=== PATIENT | female | born 1965 | race Caucasian/White ===

== ENCOUNTER → 2020-08-16 13:28 | Outpatient (BNVA) | payer MEDICAID, SELFPAY | PROVIDERS: PCP Nurse Practitioner Family; Visit Provider Nurse Practitioner Family ==

== ENCOUNTER → 2020-12-04 08:43 | Outpatient (BNVA) | payer MEDICAID, SELFPAY | PROVIDERS: PCP Nurse Practitioner Primary Care; Referring Provider Nurse Practitioner Primary Care; Visit Provider Surgery | DX: C44.621 Squamous cell carcinoma of skin of unspecified upper limb, including shoulder (principal) | CPT/HCPCS: 99202 ==

== ENCOUNTER 2023-06-02 22:49 | Inpatient (IN) | payer OTHER, SELFPAY ==
--- NOTE | ~2023-06-02 | XR_ITS ---
EXAMINATION: Left hip and femur x-ray CLINICAL INFORMATION: Pain. Mobility. COMPARISON: None. TECHNIQUE: One view of the pelvis, 2 views of the left hip and 2 views of the left femur FINDINGS: There is mild arthritis at the left hip joint. No fracture or dislocation. Left knee joint is normal. Increased sclerosis of the pubic symphysis. Bones of the pelvis are otherwise normal. Degenerative changes of the lower lumbar spine. XR/XR femur LT 2V IMPRESSION: No fracture or dislocation. Mild left hip arthritis. Degenerative changes of the lumbar spine.
--- NOTE | ~2023-06-02 | XR_ITS ---
EXAMINATION: Left hip and femur x-ray CLINICAL INFORMATION: Pain. Mobility. COMPARISON: None. TECHNIQUE: One view of the pelvis, 2 views of the left hip and 2 views of the left femur FINDINGS: There is mild arthritis at the left hip joint. No fracture or dislocation. Left knee joint is normal. Increased sclerosis of the pubic symphysis. Bones of the pelvis are otherwise normal. Degenerative changes of the lower lumbar spine. XR/XR hip LT w PEL1V IMPRESSION: No fracture or dislocation. Mild left hip arthritis. Degenerative changes of the lumbar spine.
--- NOTE | ~2023-06-02 | XR_ITS ---
EXAMINATION: XR TIBIA AND FIBULA, LEFT CLINICAL INFORMATION: Pain. Impaired mobility COMPARISON: None available. TECHNIQUE: AP and lateral views of the left tibia and fibula were obtained. FINDINGS: The bones and soft tissues are normal. No fracture. No osseous lesions. XR/XR tibia fibula LT 2V IMPRESSION: Normal left tibia and fibula.
--- OUTSIDE RECORDS SUMMARY | 2023-06-03 02:13 | XMS_ITS | Continuity of Care Document ---
Author Name Unknown Organization [facility] Address [address] [place], [place] [address], [address] [place] [address]- Care Team Providers Care Apple Turner Name Role Phone Tristan QUALITY SYSTEM MANAGER, Katya Dee Primary Care Physician Encounter [facility] [place] Date(s): 09/12/19 - 09/22/19 [facility] [address] [place] [address], [address] [place] [address]- [facility] Attending Physician: AdmtrDean Admitting Physician: AdmtrDean Referring Physician: Admtr, Ar8 Allergies, Adverse Reactions, Alerts Substance Reaction Severity Status erythromycin anaphylaxis Anaphylactic reaction Active penicillin Anaphylaxis Anaphylactic reaction Active Tomatoes hives Active Immunizations Given and Recorded Vaccine Date Status Refusal Reason tetanus/diphtheria/pertussis, acel(Tdap) 01/14/17 Given Medications Abilify 5 mg oral tablet 5 mg, 1, tablet, By Mouth, Daily, # 30 tablet, Refills 0, Tot. Refills 0, Maintenance, 07/15/19 10:02:00 EST, Route to Pharmacy Electronically, [facility]/pharmacy #[id number], 165, cm, 07/15/19 9:12:00 EST, Height, 77.2, kg, 07/12/19 14:05:00 EST, Dry Weight Start Date: 07/15/19 Stop Date: 08/14/19 Status: Ordered albuterol 0.083% inhalation solution USE 1 VIAL VIA NEBULIZER 3 TIMES A DAY Start Date: 09/22/19 Status: Ordered Ambien 10 mg oral tablet 1 tablet = 10 mg, By Mouth, Daily at bedtime, PRN for sleep, 0 Refills, Maintenance, 01/14/17 10:59:58, Tablet Start Date: 01/14/17 Status: Ordered Anoro Ellipta 62.5 mcg-25 mcg/inh inhalation powder 1 puffs, Inhalation, Daily, # 1 each, 4 Refills, Maintenance, 09/22/19 10:32:00 EST, [facility]/pharmacy #[id number], Please call if not covered by insurance., 1 puffs Inhalation Daily, 168, cm, 09/22/19 10:09:00EST, Height, 77.9, kg, 09/05/19 9:27:00 EST, Dry We... Start Date: 09/22/19 Status: Ordered Combivent Respimat CFC free 20 mcg-100 mcg/inh inhalation aerosol 1 puffs, Inhalation, 4 times a day, PRN Wheezing/Shortness of Breath, # 1 each, 6 Refills, Maintenance, 04/28/17 17:13:02, Aerosol, 1 puffs Inhalation 4 times a day,PRN:Wheezing/Shortness of Breath Start Date: 04/28/17 Status: Ordered cyclobenzaprine 5 mg oral tablet 1 tablet = 5 mg, By Mouth, 3 times a day, PRN Pain , Moderate, 0 Refills, Maintenance, 07/12/19 14:27:23 EST Start Date: 07/12/19 Status: Ordered diclofenac potassium 50 mg oral tablet TAKE 1 TABLET BY MOUTH 3 TIMES A DAY NEEDED FOR MODERATE PAIN Start Date: 09/22/19 Status: Ordered levothyroxine 0.025 mg oral tablet 1 tablet = 25 mcg, By Mouth, Daily before breakfast, # 30 tablet, 0 Refills, Maintenance, 07/12/19 14:23:13 EST, Tablet Start Date: 07/12/19 Status: Ordered Lidoderm 5% film 1 patch, Topically, Daily, remove patches after 12 hours and leave off for 12 hours before replacing. You may apply 1-2 patches to the area., # 30 patch, 0 Refills, Maintenance, 09/05/19 10:24:00 EST, [facility]/pharmacy #1234, 1 patch Topically Daily,Instr... Start Date: 09/05/19 Status: Ordered SEROquel 50 mg oral tablet 1 tablet = 50 mg, By Mouth, Daily at bedtime, # 30 tablet, 0 Refills, Maintenance, 07/15/19 10:00:00 EST, Tablet, [facility]/pharmacy #1234, 165, cm, 07/15/19 9:12:00 EST, Height, 77.2, kg, 07/12/19 14:05:00 EST, Dry Weight Start Date: 07/15/19 Stop Date: 08/14/19 Status: Ordered Vitamin D3 = 2,000 units, By Mouth, Daily, 0 Refills, Maintenance, 07/12/19 14:24:49 EST Start Date: 07/12/19 Status: Ordered Xanax XR 1 mg oral tablet, extended release 1 tablet = 1 mg, By Mouth, 5 times a day, 0 Refills, Maintenance, 01/14/17 11:01:21 EDT Start Date: 01/14/17 Status: Ordered Problem List Condition Effective Dates Status Health Status Inform ant Back pain(Confirmed) Active Bipolar disorder(Confirmed) Active Alcohol dependence in remission(Confirmed) Active Cocaine abuse(Confirmed) Active History of substance abuse(Confirmed) Active Hypothyroidism(Confirmed) Active Anxiety and depression(Confirmed) Active Multiple sclerosis(Confirmed) Active COPD, severe(Confirmed) Active Current smoker(Confirmed) Active Social History Social History Type Response Smoking Status 5-9 cigarettes (betw een 1/4 to 1/2 pack)/day in last 30 days; Tobacco user in household: No;Never; Type: Cigarettes; Previous treatment: Nicotine replacement; Interested in cessation: Yes; Tobacco use times per day: Up until Fall 2018 was smoking 1.5 ppd for over 30 years; started smoking at age 14; Total pack years: 45; Started at age: 14; entered on: 09/22/19 Sex
--- OUTSIDE RECORDS SUMMARY | 2023-06-03 02:13 | XMS_ITS | Continuity of Care Document ---
Author Name Unknown Organization [facility] heather Address [address] [place] [address] [address] [place] [address]- Care Team Providers Care Trolley Cleaner Name Role Phone Tristan AIRCRAFT RIGGING AND CONTROLS MECHANIC, Katya Dee Primary Care Physician Encounter [facility] [place] Date(s): 02/08/21 - 03/10/21 [facility] [address] [place] [address]- Attending Physician: AdmDean tavera Admitting Physician: Admtr, Ar8 Referring Physician: Admtr, Ar8 Allergies, Adverse Reactions, [...] 07/15/19 10:02:00 EST, Route to Pharmacy Electronically, [facility]/pharmacy #[id number], 165, cm, 07/15/19 9:12:00 EST, Height, 77.2, kg, 07/12/19 14:05:00 EST, Dry Weight Start Date: 07/15/19 Stop Date: 08/14/19 Status: Ordered acetaminophen-oxyCODONE 325 mg-5 mg oral tablet 1, tablet, By Mouth, Every 6 hours, PRN, not to exceed 4000 mg acetaminophen per day, # 7 tablet, Refills 0, Tot. Refills 0, Maintenance, Pain , Severe, 12/23/20 10:20:00 EDT, Route to Pharmacy Electronically, [facility]/pharmacy #1234 Tablet, Partial fill u... Start Date: 12/23/20 Status: Ordered albuterol 0.083% inhalation solution 3 mL = 2.5 mg, Neb, Every 6 hours, PRN as needed for wheezing, # 90 mL, 0 Refills, Maintenance, 11/06/20 9:31:00 EDT, Solution, Partial fill upon patient request if the prescription is for a scheduleII opioid drug. Start Date: 11/06/20 Status: Ordered Ambien 10 mg oral tablet 1 tablet = 10 mg, By Mouth, Daily at bedtime, PRN for sleep, 0 Refills, Maintenance, 01/14/17 10:59:58, Tablet Start Date: 01/14/17 Status: Ordered Anoro Ellipta 62.5 mcg-25 mcg/inh inhalation powder 1 puffs, Inhalation, Daily, # 1 each, 4 Refills, Maintenance, 09/22/19 10:32:00 EST, [facility]/pharmacy #1234, Please call if not covered by [...] 14:27:23 EST Start Date: 07/12/19 Status: Ordered levothyroxine 0.075 mg oral tablet 1 tab, By Mouth, Daily before breakfast, 0 Refills, Maintenance, 05/13/20 11:41:00 EDT Start Date: 05/13/20 Status: Ordered naproxen 500 mg oral tablet 1 tablet = 500 mg, By Mouth, 2 times a day, with food, # 10 tablet, 0 Refills, Maintenance, 12/23/20 10:20:00 EDT, Tablet, [facility]/pharmacy #1234, Partial fill upon patient request if the prescription isfor a schedule II opioid drug., 168, cm, 12/23/20 8... Start Date: 12/23/20 Stop Date: 12/28/20 Status: Ordered pregabalin 200 mg oral capsule 1 capsule = 200 mg, By Mouth, 2 times a day, 0 Refills, Maintenance, 05/13/20 11:42:00 EDT, Capsule Start Date: 05/13/20 Status: Ordered SEROquel 50 mg oral tablet 1 tablet = 50 mg, By Mouth, Daily at bedtime, # 30 tablet, 0 Refills, Maintenance, 07/15/19 10:00:00 EST, Tablet, [facility]/pharmacy #1234, 165, cm, 07/15/19 9:12:00 EST, Height, [...]
--- OUTSIDE RECORDS SUMMARY | 2023-06-03 02:13 | XMS_ITS | Continuity of Care Document ---
Author Name Unknown Organization [facility] Address [address] [place] [address]- Care Team Providers Care Court Officer Name Role Phone Tristan MANAGER DISH, Katya Dee Primary Care Physician En[place] [facility] [place] [place] [id number] Date(s): 02/16/20 - 04/27/20 [facility] [address] [place] [address]- [facility] Attending Physician: Cyndy Shaw MD Admitting Physician: Cyndy Shaw MD Allergies, Adverse Reactions, Alerts Substance Reaction Severity Status erythromycin anaphylaxis Anaphylactic reaction Active penicillin Anaphylaxis Anaphylactic reaction Active Tomatoes hives Active Immunizations Given and Recorded Vaccine Date Status Refusal Reason tetanus/diphtheria/pertussis, acel(Tdap) 01/14/17 Given Medications Abilify 5 mg oral tablet 5 mg, 1, tablet, By Mouth, Daily, # 30 tablet, Refills 0, Tot. Refills 0, Maintenance, 07/15/19 10:02:00 EST, Route to Pharmacy Electronically, [facility]/pharmacy #[id number], 165, cm, 07/15/19 9:12:00 [...] each, 4 Refills, Maintenance, 09/22/19 10:32:00 EST, [facility]/pharmacy #1234, Please call if not [...] EST, Tablet Start Date: 07/12/19 Status: Ordered SEROquel 50 mg oral tablet 1 tablet = 50 mg, By Mouth, Daily at bedtime, # 30 tablet, 0 Refills, Maintenance, 07/15/19 10:00:00 EST, Tablet, [facility]/pharmacy #1234, 165, cm, 07/15/19 9:12:00 [...]
--- OUTSIDE RECORDS SUMMARY | 2023-06-03 02:13 | XMS_ITS | Continuity of Care Document ---
Author Name Unknown Organization [facility] ter Address [address] [place] [address]- Care Team Providers Care Gas Meter Reader Name Role Phone Tristan ACKERMAN, Katya Dee Primary Care Physician Encounter [facility] [place] [facility] R [id number] Date(s): 09/23/19 - 01/19/[address] [address]- [facility] Attending Physician: Kylie Simpson NP Admitting Physician: Kylie Simpson NP Referring Physician: Kylie Simpson NP Allergies, Adverse Reactions, Alerts Substance Reaction Severity Status erythromycin anaphylaxis Anaphylactic reaction Active penicillin Anaphylaxis Anaphylactic reaction Active Tomatoes hives Active Immunizations Given and Recorded Vaccine Date Status Refusal Reason tetanus/diphtheria/pertussis, acel(Tdap) 01/14/17 Given Medications Abilify 5 mg oral tablet 5 mg, 1, tablet, By Mouth, Daily, # 30 tablet, Refills 0, Tot. Refills 0, Maintenance, 07/15/19 10:02:00 EST, Route to Pharmacy Electronically, [facility]/pharmacy #1234, 165, cm, 07/15/19 9:12:00 EST, Height, [...] each, 4 Refills, Maintenance, 09/22/19 10:32:00 EST, [facility]/pharmacy #1234, Please call if not covered by [...] 0 Refills, Maintenance, 07/15/19 10:00:00 EST, Tablet, [facility]/pharmacy #1234, 165, cm, 07/15/19 9:12:00 EST, Height, [...]
--- OUTSIDE RECORDS SUMMARY | 2023-06-03 02:13 | XMS_ITS | Continuity of Care Document ---
Author Name Unknown Organization [facility]ather Address [address] [place] [address] [address] [place] [address]- Care Team Providers Care Assistant Commissioner Name Role Phone Tristan DIESEL TRACTOR OPERATOR, Katya Dee Primary Care Physician En[place] [facility] [place] Date(s): 12/04/20 - 01/31/21 [facility] [address] [place] [address]- Attending Physician: Lm Carlos MD Referring Physician: Vel Sanders MD Allergies, Adverse Reactions, Alerts Substance Reaction [...] 07/15/19 10:02:00 EST, Route to Pharmacy Electronically, [facility]/pharmacy #[id number], 165, cm, 07/15/19 9:12:00 EST, [...] 12/23/20 10:20:00 EDT, Route to Pharmacy Electronically, [facility]/pharmacy #1234 Tablet, Partial fill u... Start [...] each, 4 Refills, Maintenance, 09/22/19 10:32:00 EST, [facility]/pharmacy #1234, Please call if not covered [...] 0 Refills, Maintenance, 07/15/19 10:00:00 EST, Tablet, [facility]/pharmacy #1234, 165, cm, 07/15/19 9:12:00 EST, Height, 77.2, kg, 07/12/19 14:05:00 EST, Dry Weight Start Date: 07/15/19 Stop Date: 08/14/19 Status: Ordered Tylenol 8 Hour 650 mg oral tablet, extended release 2 tablet = 1,300 mg, By Mouth, Every 8 hours, PRN as needed for fever, for 7 days, # 24 tablet, 0 Refills, Acute 02/01/21 9:42:00 EDT, 01/25/21 9:42:00 EDT, ER Tablet, [facility]/pharmacy #1234, Partial fill upon patient request if the prescription is for a... Start Date: 01/25/21 Stop Date: 02/01/21 Status: Ordered Vitamin D3 = 2,000 units, [...] Response Smoking Status 5-9 cigarettes (betw een 07/30 to 1/2 pack)/day in last 30 days; Tobacco user in household: No;Never; Type: Cigarettes; Previous treatment: Nicotine replacement; Interested in cessation: Yes; Tobacco use times per day: Up until Fall 2018 was smoking 1.5 ppd for over 30 years; started smoking at age 14; Total pack years: 45; Started at age: 14; entered on: 09/22/19 Sex
--- OUTSIDE RECORDS SUMMARY | 2023-06-03 02:13 | XMS_ITS | Continuity of Care Document ---
Author Name Unknown Organization [facility] Address [address] [place] [address]- Care Team Providers Care Installer Soft Top Name Role Phone Tristan MIDDLE SCHOOL COACH, Katya Dee Primary Care Physician [phone] Encounter [facility] [place] Date(s): 04/27/20 - 05/27/20 [facility] [address] [place] [address]- [facility] Attending Physician: Dean Darden Admitting Physician: Admtr, Dean Referring Physician: Admtr, Ar8 Allergies, Adverse Reactions, [...] 07/15/19 10:02:00 EST, Route to Pharmacy Electronically, [facility]/pharmacy #1234, 165, cm, 07/15/19 9:12:00 EST, Height, 77.2, kg, 07/12/19 14:05:00 EST, Dry Weight Start Date: 07/15/19 Stop Date: 08/14/19 Status: Ordered Ambien 10 mg oral tablet 1 tablet = 10 mg, By Mouth, Daily at bedtime, PRN for sleep, 0 Refills, Maintenance, 01/14/17 10:59:58, Tablet Start Date: 01/14/17 Status: Ordered Anoro Ellipta 62.5 mcg-25 mcg/inh inhalation powder 1 puffs, Inhalation, Daily, # 1 each, 4 Refills, Maintenance, 09/22/19 10:32:00 EST, [facility]/pharmacy #1234, Please call if not covered [...] 11:41:00 EDT Start Date: 05/13/20 Status: Ordered pregabalin 200 mg oral capsule 1 capsule = 200 mg, By Mouth, 2 times a day, 0 Refills, Maintenance, 05/13/20 11:42:00 EDT, Capsule Start Date: 05/13/20 Status: Ordered SEROquel 50 mg oral tablet 1 tablet = 50 mg, By Mouth, Daily at bedtime, # 30 tablet, 0 Refills, Maintenance, 07/15/19 10:00:00 EST, Tablet, [facility]/pharmacy #1234, 165, cm, 07/15/19 9:12:00 EST, [...]
--- OUTSIDE RECORDS SUMMARY | 2023-06-03 02:13 | XMS_ITS | Continuity of Care Document ---
Author Name Unknown Organization [facility] ter Address [address] [place] [address]- Care Team Providers Care Frame Table Operator Name Role Phone Tristan ACKERAMN, Katya Dee Primary Care Physician [phone] Encounter [facility] [place] Date(s): 01/02/21 - 02/16/[address] [address] Attending Physician: Katya Hudson NP Admitting Physician: Tristan ACKERMAN, Katya Dee Referring Physician: Tristan ACKERMAN, Katya Dee Allergies, Adverse Reactions, Alerts Substance Reaction Severity Status erythromycin anaphylaxis Anaphylactic reaction Active Tomatoes hives Active penicillin Anaphylaxis Anaphylactic reaction Active Immunizations Given and Recorded Vaccine Date Status Refusal Reason tetanus/diphtheria/pertussis, acel(Tdap) 01/14/17 Given Medications Abilify 5 mg oral tablet 5 mg, 1, tablet, By Mouth, Daily, # 30 tablet, Refills 0, Tot. Refills 0, Maintenance, 07/15/19 10:02:00 EST, Route to Pharmacy Electronically, [facility]/pharmacy #1234, 165, cm, 07/15/19 9:12:00 EST, [...] 12/23/20 10:20:00 EDT, Route to Pharmacy Electronically, [facility]/pharmacy #1234 Tablet, Partial fill u... Start Date: [...] each, 4 Refills, Maintenance, 09/22/19 10:32:00 EST, [facility]/pharmacy #1234, Please call if not covered [...] 0 Refills, Maintenance, 07/15/19 10:00:00 EST, Tablet, [facility]/pharmacy #1234, 165, cm, 07/15/19 9:12:00 EST, [...]
--- OUTSIDE RECORDS SUMMARY | 2023-06-03 02:13 | XMS_ITS | Continuity of Care Document ---
Author Name Unknown Organization [facility] Address [address] [place] [address]- Care Team Providers Care Counter Manager Name Role Phone Tristan ACKERMAN, Katya Dee Primary Care Physician [phone] Encounter [facility] [place] Date(s): 06/12/21 - 07/12/[address] [address]- Attending Physician: Dean Darden Admitting Physician: Admtr, Ar8 Referring Physician: Admtr, Ar8 Allergies, Adverse Reactions, Alerts Substance Reaction Severity Status Tomatoes hives Active erythromycin anaphylaxis Anaphylactic reaction Active penicillin Anaphylaxis Anaphylactic reaction Active Immunizations Given and Recorded Vaccine Date Status Refusal Reason tetanus/diphtheria/pertussis, acel(Tdap) 01/14/17 Given Medications Abilify 5 mg oral tablet 5 mg, 1, tablet, By Mouth, Daily, # 30 tablet, Refills 0, Tot. Refills 0, Maintenance, 03/22/21 10:08:00 EDT, Route to Pharmacy Electronically, [facility]/pharmacy #1234, 168, cm, 03/22/21 10:10:00 EDT, Height, 75, kg, 03/18/21 19:04:00 EDT, Dry Weight Start Date: 03/22/21 Stop Date: 04/21/21 Status: Ordered ALPRAZolam 0.5 mg oral tablet 1 mg, 2, tablet, By Mouth, 3 times a day, PRN, Refills 0, Maintenance, Anxiety, 03/22/21 10:11:00 EDT, Partial fill upon patient request if the prescription is for a schedule II opioid drug. Start Date: 03/22/21 Status: Ordered Ambien 5 mg oral tablet 2 tablet = 10 mg, By Mouth, Daily at bedtime, PRN Sleep, 0 Refills, Maintenance, 03/22/21 10:10:00 EDT, Tablet, Partial fill upon patient request if the prescription is for a schedule II opioid drug. Start Date: 03/22/21 Status: Ordered fluticasone-vilanterol 100 mcg-25 mcg/inh inhalation powder 1 puffs, Inhalation, Daily, # 1 each, 0 Refills, Maintenance, 03/22/21 10:09:00 EDT, Inhaler, [facility]/pharmacy #1234, Partial fill upon patient request if the prescription is for a schedule II opioid drug., 1 puffs Inhalation Daily, 168, cm, 03/22/21 10:1... Start Date: 03/22/21 Status: Ordered gabapentin 100 mg oral capsule 100 mg, 1, capsule, By Mouth, 4 times a day, # 120 capsule, Refills 0, Tot. Refills 0, Maintenance,03/22/21 10:09:00 EDT, Route to Pharmacy Electronically, [facility]/pharmacy #1234, Partial fill upon patient request if the prescription is for a schedule II... Start Date: 03/22/21 Status: Ordered levothyroxine 0.1 mg oral tablet 1 tablet = 100 mcg, By Mouth, Daily, # 30 tablet, 0 Refills, Maintenance, 03/22/21 10:09:00 EDT, Tablet, [facility]/pharmacy #1234, Partial fill upon patient request if the prescription is for a schedule IIopioid drug., 168, cm, 03/22/21 10:10:00 EDT, Heigh... Start Date: 03/22/21 Status: Ordered Nicoderm C-Q Clear 21 mg/24 hr transdermal film, extended release See Instructions, one daily, # 21 patch, 0 Refills, Maintenance, 03/22/21 10:10:00 EDT, [facility]/pharmacy #1234, Partial fill upon patient request if the prescription is for a schedule II opioid drug., 168, cm, 03/22/21 10:10:00 EDT, Height, 75, kg, 03/18/... Start Date: 03/22/21 Status: Ordered Protonix 20 mg oral delayed release tablet = 20 mg, By Mouth, 2 times a day, # 60 capsule, 0 Refills, Maintenance, 03/22/21 10:10:00 EDT, EC Tablet, 168, cm, 03/22/21 10:10:00 EDT, Height, 75, kg, 03/18/21 19:04:00 EDT, Dry Weight Start Date: 03/22/21 Status: Ordered SEROquel 100 mg oral tablet 100 mg, 1, tablet, By Mouth, 3 times a day, # 90 tablet, Refills 0, Tot. Refills 0, Maintenance, 03/22/21 10:09:00 EDT, Route to Pharmacy Electronically, [facility]/pharmacy #[id number], Partial fill upon patientrequest if the prescription is for a schedule II op... Start Date: 03/22/21 Status: Ordered Problem List Condition Effective Dates [...]
--- OUTSIDE RECORDS SUMMARY | 2023-06-03 02:13 | XMS_ITS | Continuity of Care Document ---
Author Name Unknown Organization [facility] heather Address [address] [place] [address] [address] [place] [address]- Care Team Providers Care Circus Trainer Name Role Phone Tristan ACKERMAN, Katya Dee Primary Care Physician [phone] [place] [facility] [place] [id number] Date(s): 12/11/20 - 12/18/20 [facility] [address] [place] [address]- Attending Physician: Lm Carlos MD Referring Physician: [...] 07/15/19 10:02:00 EST, Route to Pharmacy Electronically, [facility]/pharmacy #[id number], 165, cm, 07/15/19 9:12:00 EST, Height, 77.2, kg, 07/12/19 14:05:00 EST, Dry Weight Start Date: 07/15/19 Stop Date: 08/14/19 Status: Ordered albuterol 0.083% inhalation solution 3 [...] each, 4 Refills, Maintenance, 09/22/19 10:32:00 EST, [facility]/pharmacy #1234, Please call if [...] 0 Refills, Maintenance, 07/15/19 10:00:00 EST, Tablet, [facility]/pharmacy #1234, 165, cm, 07/15/19 [...] Active COPD, severe(Confirmed) Active Current smoker(Confirmed) Active Vital Signs Most recent to oldest [Reference Range]: 1 Height 168 cm (12/11/20 2:00 PM) Weight 68 kg (12/11/20 2:00 PM) Body Mass Index [18.5-24.99] 24.09 (12/11/20 2:00 PM) Temperature [96.8-100.4 DegF] 98.9 DegF (12/11/20 2:00 PM) Social History Social History Type Response Smoking [...]
--- OUTSIDE RECORDS SUMMARY | 2023-06-03 02:13 | XMS_ITS | Continuity of Care Document ---
Author Name Unknown Organization [facility] Address [address] [place] [address]- Care Team Providers Care Manager Water Wastewater Name Role Phone Tristan ACKERMAN, Katya Dee Primary Care Phys[id number] - 07/24/[address] [address] Attending Physician: Katya Hudson NP Admitting Physician: Tristan ACKERMAN, Katya Dee Referring Physician: Tristan ACKERMAN, Katya Dee Allergies, Adverse Reactions, Alerts Substance Reaction Severity Status erythromycin anaphylaxis Anaphylactic reaction Active penicillin Anaphylaxis Anaphylactic reaction Active Tomatoes hives Active Immunizations Given and Recorded Vaccine Date Status Refusal Reason SARS-CoV-2 mRNA (iyryaeu-xpfv-gcygz) vax 12/14/21 Recorded SARS-CoV-2 (COVID-19) mRNA BNT-162b2 vac 08/04/21 Recorded SARS-CoV-2 (COVID-19) mRNA BNT-162b2 vac 07/14/21 Recorded tetanus/diphtheria/pertussis, acel(Tdap) 01/14/17 Given Not Given Vaccine Date Status Refusal Reason influenza virus vaccine, inactivated 04/20/22 Not Given Parent Or Guardian Refuses Medications Abilify 10 mg oral tablet 10 mg, 1, tablet, By Mouth, Daily, Refills 0, Maintenance, 06/22/22 11:56:00 EST, Partial fill uponpatient request if the prescription is for a schedule II opioid drug. Start Date: 06/22/22 Status: Ordered acetaminophen 325 mg oral tablet 650 mg, By Mouth, Every 4 hours, PRN, Temperature Greater than 100.5, Refills 0, Maintenance, Pain , Mild, 04/21/22 12:37:00 EDT, Partial fill upon patient request if the prescription is for a schedule II opioid drug. Start Date: 04/21/22 Status: Ordered ALPRAZolam 1 mg oral tablet 1 tablet = 1 mg, By Mouth, Every 8 hours, 0 Refills, Maintenance, 06/22/22 11:56:00 EST, Partial fill upon patient request if the prescription is for a schedule II opioid drug. Start Date: 06/22/22 Status: Ordered Ambien 5 mg oral tablet 2 tablet = 10 mg, By Mouth, Daily at bedtime, PRN Sleep, 0 Refills, Maintenance, 03/22/21 10:10:00 EDT, Tablet, Partial fill upon patient request if the prescription is for a schedule II opioid drug. Start Date: 03/22/21 Status: Ordered Anoro Ellipta Inhalation, Daily, 0 Refills, Maintenance, 01/27/22 20:54:00 EDT, Partial fill upon patient requestif the prescription is for a schedule II opioid drug. Start Date: 01/27/22 Status: Ordered CombIVENT Inhaler Refills 0, Maintenance, 06/22/22 11:56:00 EST Start Date: 06/22/22 Status: Ordered cyclobenzaprine 5 mg oral tablet TAKE 1 TABLET BY MOUTH THREE TIMES A DAY Start Date: 04/19/22 Status: Ordered levothyroxine 0.1 mg oral tablet 1 tablet = 100 mcg, By Mouth, Daily, # 30 tablet, 0 Refills, Maintenance, 03/22/21 10:09:00 EDT, Tablet, [facility]/pharmacy #[id number], Partial fill upon patient request if the prescription is for a schedule IIopioid drug., 168, cm, 03/22/21 10:10:00 EDT, [place]. Start Date: 03/22/21 Status: Ordered pregabalin 75 mg oral capsule TAKE 1 CAPSULE BY MOUTH TWICE A DAY Start Date: 04/19/22 Status: Ordered QUEtiapine 100 mg oral tablet TAKE 1 TABLET BY MOUTH THREE TIMES A DAY Start Date: 04/19/22 Status: Ordered rosuvastatin 10 mg oral tablet 1 tablet = 10 mg, By Mouth, Daily, # 30 tablet, 0 Refills, Maintenance, 04/19/22 20:59:00 EDT, Tablet, Partial fill upon patient request if the prescription is for a schedule II opioid drug. Start Date: 04/19/22 Status: Ordered Vitamin D3 2000 intl units oral tablet 1 tablet = 50 mcg, By Mouth, Daily, 0 Refills, Maintenance, 06/22/22 11:57:00 EST, Partial fill upon patient request if the prescription is for a schedule II opioid drug. Start Date: 06/22/22 Status: Ordered Problem List Condition Confirmation Course Effective Dates Status H ealth Status Informant Back pain Confirmed Active Bipolar disorder Confirmed Active Alcohol dependence in remission Confirmed Active Cocaine abuse Confirmed Active History of substance abuse Confirmed Active Hypothyroidism Confirmed Active Hypothyroidism Confirmed Active Anxiety and depression Confirmed Active Multiple sclerosis Confirmed Active Multiple sclerosis Confirmed Active Leg weakness Confirmed Active Obese class I Confirmed Active Falls frequently Confirmed Active COPD, severe Confirmed Active Current smoker Confirmed Active Social History Social History Type Response Smoking Status 5-9 cigarettes (betw een 1/4 to 1/2 pack)/day in last 30 days; Other: 6 cigarettes a day; entered on: 01/28/22 Sex Patient Care team information Care Team Personnel Name: Phil Anglin RN Position: [facility] RN Member Role: Primary Care Nurse Name: Katya Hudson NP Position: [facility] Outreach Member Role: PCP Address: Address: [address] [place] [address]- Care Team Related Persons Name: ALFREDO VILLANUEVA Address: [address] [place] [address] Name: SMOOTH HAJI Name: DENNY HAJI Address: [address] [place] [address]
--- OUTSIDE RECORDS SUMMARY | 2023-06-03 02:13 | XMS_ITS | Continuity of Care Document ---
Author Name Unknown Organization [facility]ather Address [address] [place] [address] [facility] [address] [place] [address]- Care Team Providers Care Weight Loss Physician Name Role Phone Tristan PIVOT END POLISHER, Katya Dee Primary Care Physician [phone] [facility] Date(s): 02/05/21 - 03/07/21 [facility] [address] [place], [place] [address] Allergies, Adverse Reactions, Alerts Substance Reaction Severity Status erythromycin anaphylaxis Anaphylactic reaction Active penicillin Anaphylaxis Anaphylactic reaction Active Tomatoes hives Active Immunizations Given and Recorded Vaccine Date Status Refusal Reason tetanus/diphtheria/pertussis, acel(Tdap) 01/14/17 Given Medications Abilify 5 mg oral tablet 5 mg, 1, tablet, By Mouth, Daily, # 30 tablet, Refills 0, Tot. Refills 0, Maintenance, 07/15/19 10:02:00 EST, Route to Pharmacy Electronically, [facility]/pharmacy #[id number], 165, cm, 07/15/19 9:12:00 [...] 12/23/20 10:20:00 EDT, Route to Pharmacy Electronically, [facility]/pharmacy #[id number] Tablet, Partial fill u... [...] each, 4 Refills, Maintenance, 09/22/19 10:32:00 EST, [facility], Please call if not covered by [...] 0 Refills, Maintenance, 07/15/19 10:00:00 EST, Tablet, [facility], 165, cm, 07/15/19 9:12:00 EST, Height, [...]
--- OUTSIDE RECORDS SUMMARY | 2023-06-03 02:13 | XMS_ITS | Continuity of Care Document ---
Author Name Unknown Organization [facility] Address [address] [place] [address] [address] [place] [address]- Care Team Providers Care Ski Technician Name Role Phone Tristan STARBUCKS CLERK, Katya Dee Primary Care Physician [phone] [place] [facility] [place]s): 01/08/21 - 02/07/21 [facility] [address] [place] [address]- Allergies, Adverse Reactions, Alerts Substance Reaction Severity Status erythromycin anaphylaxis Anaphylactic reaction Active penicillin Anaphylaxis Anaphylactic reaction Active Tomatoes hives Active Immunizations Given and Recorded Vaccine Date Status Refusal Reason tetanus/diphtheria/pertussis, acel(Tdap) 01/14/17 Given Medications Abilify 5 mg oral tablet 5 mg, 1, tablet, By Mouth, Daily, # 30 tablet, Refills 0, Tot. Refills 0, Maintenance, 07/15/19 10:02:00 EST, Route to Pharmacy Electronically, [facility]/pharmacy #[id number], 165, cm, 07/15/19 9:12:00 [...] 12/23/20 10:20:00 EDT, Route to Pharmacy Electronically, [facility]/pharmacy #1234 Tablet, Partial fill u... [...] 0 Refills, Maintenance, 07/15/19 10:00:00 EST, Tablet, [facility]/pharmacy #1234, 165, cm, 07/15/19 9:12:00 [...]
--- OUTSIDE RECORDS SUMMARY | 2023-06-03 02:13 | XMS_ITS | Continuity of Care Document ---
Author Name Unknown Organization [facility]ather Address [address] [place] [address] [address] [place] [address]- Care Team Providers Care Veneer Puller Name Role Phone Tristan CAMPUS SAFETY OFFICER, Katya Dee Primary Care Physician Encounter [facility] Date(s): 05/28/21 - 06/27/21 [facility] [address] [place] [address]- Attending Physician: AdmDean tavera Admitting Physician: Admtr, [...] 03/22/21 10:08:00 EDT, Route to Pharmacy Electronically, [facility]/pharmacy #[id number], 168, cm, 03/22/21 10:10:00 EDT, Height, [...] 0 Refills, Maintenance, 03/22/21 10:09:00 EDT, Inhaler, [facility]/pharmacy #1234, Partial fill upon patient request if the prescription is for a schedule II opioid drug., 1 puffs Inhalation Daily, 168, cm, 03/22/21 10:1... Start Date: 03/22/21 Status: Ordered gabapentin 100 mg oral capsule 100 mg, 1, capsule, By Mouth, 4 times a day, # 120 capsule, Refills 0, Tot. Refills 0, Maintenance,03/22/21 10:09:00 EDT, Route to Pharmacy Electronically, [facility]/pharmacy #1234, Partial fill upon patient request if the prescription is for a schedule II... Start Date: 03/22/21 Status: Ordered levothyroxine 0.1 mg oral tablet 1 tablet = 100 mcg, By Mouth, Daily, # 30 tablet, 0 Refills, Maintenance, 03/22/21 10:09:00 EDT, Tablet, [facility]/pharmacy #1234, Partial fill upon patient request if the prescription is for a schedule IIopioid drug., 168, cm, 03/22/21 10:10:00 EDT, Heigh... Start Date: 03/22/21 Status: Ordered Nicoderm C-Q Clear 21 mg/24 hr transdermal film, extended release See Instructions, one daily, # 21 patch, 0 Refills, Maintenance, 03/22/21 10:10:00 EDT, [facility], Partial fill upon patient request [...] 03/22/21 10:09:00 EDT, Route to Pharmacy Electronically, [facility]/pharmacy #[id number], Partial fill upon patientrequest if the prescription [...]
--- OUTSIDE RECORDS SUMMARY | 2023-06-03 02:13 | XMS_ITS | Continuity of Care Document ---
Author Name Unknown Organization [facility] heather Address [address] [place] [address] [address] [place] [address]- Care Team Providers Care Protohistorian Name Role Phone Tirstan ELECTRIC FRYING PAN REPAIRER, Katya Dee Primary Care Physician [facility] Date(s): 03/21/21 - 04/20/21 [facility] [address] [place], [place] [address] Allergies, Adverse Reactions, Alerts Substance Reaction Severity Status erythromycin anaphylaxis Anaphylactic reaction Active penicillin Anaphylaxis Anaphylactic reaction Active Tomatoes hives Active Immunizations Given and Recorded Vaccine Date Status Refusal Reason tetanus/diphtheria/pertussis, acel(Tdap) 01/14/17 Given Medications Abilify 5 mg oral tablet 5 mg, 1, tablet, By Mouth, Daily, # 30 tablet, Refills 0, Tot. Refills 0, Maintenance, 03/22/21 10:08:00 EDT, Route to Pharmacy Electronically, [facility]/pharmacy #1234, 168, cm, 03/22/21 10:10:00 EDT, Height, [...] 0 Refills, Maintenance, 03/22/21 10:09:00 EDT, Inhaler, [facility]/pharmacy #1234, Partial fill upon patient request if the prescription is for a schedule II opioid drug., 1 puffs Inhalation Daily, 168, cm, 03/22/21 10:1... Start Date: 03/22/21 Status: Ordered gabapentin 100 mg oral capsule 100 mg, 1, capsule, By Mouth, 4 times a day, # 120 capsule, Refills 0, Tot. Refills 0, Maintenance,03/22/21 10:09:00 EDT, Route to Pharmacy Electronically, [facility]/pharmacy #1234, Partial fill upon patient request if the prescription is for a schedule II... Start Date: 03/22/21 Status: Ordered levothyroxine 0.1 mg oral tablet 1 tablet = 100 mcg, By Mouth, Daily, # 30 tablet, 0 Refills, Maintenance, 03/22/21 10:09:00 EDT, Tablet, [facility]/pharmacy #1234, Partial fill upon patient request if the prescription is for a schedule IIopioid drug., 168, cm, 03/22/21 10:10:00 EDT, Gloria... Start Date: 03/22/21 Status: Ordered Nicoderm C-Q Clear 21 mg/24 hr transdermal film, extended release See Instructions, one daily, # 21 patch, 0 Refills, Maintenance, 03/22/21 10:10:00 EDT, [facility]/pharmacy #1234, Partial fill upon patient request if the prescription is for a schedule II opioid drug., 168, cm, 03/22/21 10:10:00 EDT, Height, 75, kg, ... Start Date: 03/22/21 Status: Ordered Protonix 20 [...] 03/22/21 10:09:00 EDT, Route to Pharmacy Electronically, [facility]/pharmacy #[id number], Partial fill upon patientrequest if the prescription [...]
--- OUTSIDE RECORDS SUMMARY | 2023-06-03 02:13 | XMS_ITS | Continuity of Care Document ---
Author Name Unknown Organization [facility] Address [address] [place] [address]- Care Team Providers Care Welcome Center Attendant Name Role Phone Tristan ORGANIZATIONAL RESEARCH CONSULTANT, Katya Dee Primary Care Physician Encounter [facility] Date(s): 03/22/20 - 05/27/20 [facility] [address] [place] [address] [facility] Attending Physician: Cyndy Shaw MD [...] 07/15/19 10:02:00 EST, Route to Pharmacy Electronically, [facility]/pharmacy #1234, 165, cm, 07/15/19 9:12:00 [...] each, 4 Refills, Maintenance, 09/22/19 10:32:00 EST, [facility]/pharmacy #1234, Please call if not [...]
--- OUTSIDE RECORDS SUMMARY | 2023-06-03 02:13 | XMS_ITS | Continuity of Care Document ---
Author Name Unknown Organization [facility] heather Address [address] [place] [address] [address] [place] [address]- Care Team Providers Care Operations Support Specialist Name Role Phone Tristan ACKERMAN, Katya Dee Primary Care Physician [place] [facility] Date(s): 03/25/21 - 06/27/21 [facility] [address] [place] [address]- Attending Physician: Breanna LUI, Lm Referring Physician: Katya Hudson NP Allergies, Adverse Reactions, Alerts Substance Reaction [...] 03/22/21 10:08:00 EDT, Route to Pharmacy Electronically, [facility]/pharmacy #1234, 168, cm, 03/22/21 10:10:00 EDT, [...] 0 Refills, Maintenance, 03/22/21 10:09:00 EDT, Inhaler, [facility]/pharmacy #1234, Partial fill upon patient request if the prescription is for a schedule II opioid drug., 1 puffs Inhalation Daily, 168, cm, 03/22/21 10:1... Start Date: 03/22/21 Status: Ordered gabapentin 100 mg oral capsule 100 mg, 1, capsule, By Mouth, 4 times a day, # 120 capsule, Refills 0, Tot. Refills 0, Maintenance,03/22/21 10:09:00 EDT, Route to Pharmacy Electronically, [facility]/pharmacy #1234, Partial fill upon patient request if the prescription is for a schedule II... Start Date: 03/22/21 Status: Ordered levothyroxine 0.1 mg oral tablet 1 tablet = 100 mcg, By Mouth, Daily, # 30 tablet, 0 Refills, Maintenance, 03/22/21 10:09:00 EDT, Tablet, [facility]/pharmacy #1234, Partial fill upon patient request if the prescription is for a schedule IIopioid drug., 168, cm, 03/22/21 10:10:00 EDT, Heigh... Start Date: 03/22/21 Status: Ordered Nicoderm C-Q Clear 21 mg/24 hr transdermal film, extended release See Instructions, one daily, # 21 patch, 0 Refills, Maintenance, 03/22/21 10:10:00 EDT, [facility]/pharmacy #1234, Partial fill upon patient request [...] 03/22/21 10:09:00 EDT, Route to Pharmacy Electronically, [facility]/pharmacy #[id number], Partial fill upon patientrequest if the prescription [...]
--- OUTSIDE RECORDS SUMMARY | 2023-06-03 02:13 | XMS_ITS | Continuity of Care Document ---
Author Name Unknown Organization [facility] Address [address] [place] [address]- Care Team Providers Care Management Intern Name Role Phone Tristan ACKERMAN, Katya Dee Primary Care Physician [phone] Encounter [facility] Date(s): 10/05/19 - 03/23/20 [facility] [address] [place] [address] [facility] Attending Physician: Cyndy Shaw MD Admitting Physician: Cyndy Shaw MD Referring Physician: Katya Hudson NP Allergies, Adverse [...] 07/15/19 10:02:00 EST, Route to Pharmacy Electronically, [facility]/pharmacy #1234, 165, cm, 07/15/19 9:12:00 EST, [...] each, 4 Refills, Maintenance, 09/22/19 10:32:00 EST, [facility]/pharmacy #1234, Please call if not covered [...] 0 Refills, Maintenance, 07/15/19 10:00:00 EST, Tablet, [facility]/pharmacy #1234, 165, cm, 07/15/19 9:12:00 EST, [...]
--- OUTSIDE RECORDS SUMMARY | 2023-06-03 02:14 | XMS_ITS | Continuity of Care Document ---
Author Name Unknown Organization [facility] Address [address] [place] [address]- Care Team Providers Care Congressional Aide Name Role Phone Tristan ACKERMAN, Katya Dee Primary Care Physician [id number] Date(s): 06/06/21 - 07/12/[address] [address] Attending Physician: Katya Hudson NP Admitting [...] 03/22/21 10:08:00 EDT, Route to Pharmacy Electronically, [facility]/pharmacy #1234, 168, cm, 03/22/21 10:10:00 EDT, Height, [...] 0 Refills, Maintenance, 03/22/21 10:09:00 EDT, Inhaler, [facility]/pharmacy #1234, Partial fill upon patient request if the prescription is for a schedule II opioid drug., 1 puffs Inhalation Daily, 168, cm, 03/22/21 10:1... Start Date: 03/22/21 Status: Ordered gabapentin 100 mg oral capsule 100 mg, 1, capsule, By Mouth, 4 times a day, # 120 capsule, Refills 0, Tot. Refills 0, Maintenance,03/22/21 10:09:00 EDT, Route to Pharmacy Electronically, [facility]/pharmacy #1234, Partial fill upon patient request if the prescription is for a schedule II... Start Date: 03/22/21 Status: Ordered levothyroxine 0.1 mg oral tablet 1 tablet = 100 mcg, By Mouth, Daily, # 30 tablet, 0 Refills, Maintenance, 03/22/21 10:09:00 EDT, Tablet, [facility]/pharmacy #1234, Partial fill upon patient request if the prescription is for a schedule IIopioid drug., 168, cm, 03/22/21 10:10:00 EDT, Heigh... Start Date: 03/22/21 Status: Ordered Nicoderm C-Q Clear 21 mg/24 hr transdermal film, extended release See Instructions, one daily, # 21 patch, 0 Refills, Maintenance, 03/22/21 10:10:00 EDT, [facility]/pharmacy #1234, Partial fill upon patient request if [...] 03/22/21 10:09:00 EDT, Route to Pharmacy Electronically, [facility]/pharmacy #[id number], Partial fill upon patientrequest if the prescription [...]
--- OUTSIDE RECORDS SUMMARY | 2023-06-03 02:14 | XMS_ITS | Continuity of Care Document ---
Author Name Unknown Organization [facility] Address [address] [facility], [address] Floor, [address] [place] [address]- Care Team Providers Care Support Services Coordinator Name Role Phone Tristan HOME ENERGY RATER, Katya Dee Primary Care Physician [phone] Encounter [facility] Date(s): 05/28/22 - 06/27/22 [facility] [address], [address], [address] [place] [address]- Attending Physician: AdmDean tavera Admitting Physician: Admtr, Ar8 Referring Physician: Admtr, Ar8 Allergies, Adverse Reactions, Alerts Substance Reaction Severity Status erythromycin anaphylaxis Anaphylactic reaction Active penicillin Anaphylaxis Anaphylactic reaction Active Tomatoes hives Active Immunizations Given and Recorded Vaccine Date Status Refusal Reason SARS-CoV-2 mRNA (umhbdki-[id number]-poalb) vax 12/14/21 Recorded SARS-CoV-2 (COVID-19) mRNA BNT-162b2 [...] 0 Refills, Maintenance, 03/22/21 10:09:00 EDT, Tablet, [facility]/pharmacy #1234, Partial fill upon patient request if the prescription is for a schedule IIopioid drug., 168, cm, 03/22/21 10:10:00 EDTGloria... Start Date: 03/22/21 Status: Ordered pregabalin 75 [...] sclerosis Confirmed Active Leg weakness Confirmed Active Falls frequently Confirmed Active COPD, severe Confirmed Active Current smoker Confirmed Active Social History Social History Type Response Smoking Status 5-9 cigarettes (betw een 1/4 to 1/2 pack)/day in last 30 days; Other: 6 cigarettes a day; entered on: 01/28/22 Sex Admission evaluation note * Danae Brown: PERFORM, SIGN, VERIFY Event Display: Admit Notes Authored Date: [id number] Patient: ELISA VARELA Age: 50 years Sex: Female : 1965 Associated Diagnoses: None Author: Danae Brown Dear Elisa, We have tried to get in contact with you a few times and the numbers that we have on file are no longer is service. Please contact the office to book an appointment so we are able to fill your prescription. Thank you [facility]. Patient Care team information Care Team Personnel Name: Phil Anglin RN Position: S RN Member Role: Primary Care Nurse Name: Katya Hudson NP Position: [facility] Outreach Member Role: PCP Address: Address: [address] [place] [address]- Care Team Related Persons Name: ALFREDO VILLANUEVA Address: [address] [place] [address] Name: SMOOTH HAJI Name: DENNY AHJI Address: [address] [place] [address]
--- OUTSIDE RECORDS SUMMARY | 2023-06-03 02:14 | XMS_ITS | Continuity of Care Document ---
Author Name Unknown Organization [facility] Address [address] [place] [address]- Care Team Providers Care Elastic Attacher Overlock Name Role Phone Tristan ACKERMAN, Katya Dee Primary Care Physician [phone] [id number] Date(s): 08/03/22 - 09/11/[address] [address] Attending Physician: Katya Hudson NP Admitting Physician: Tristan ACKERMAN, Katya Dee Allergies, Adverse Reactions, Alerts Substance Reaction Severity Status erythromycin anaphylaxis Anaphylactic reaction Active penicillin Anaphylaxis Anaphylactic reaction Active Tomatoes hives Active Immunizations Given and Recorded Vaccine Date Status Refusal Reason SARS-CoV-2 mRNA (bygqfsc-evus-xrhyc) vax 12/14/21 Recorded SARS-CoV-2 (COVID-19) mRNA BNT-162b2 [...] 0 Refills, Maintenance, 03/22/21 10:09:00 EDT, Tablet, [facility]/pharmacy #1234, Partial fill upon patient request if the prescription is for a schedule IIopioid drug., 168, cm, 03/22/21 10:10:00 EDT, [place] Start Date: 03/22/21 Status: Ordered pregabalin 75 [...] Team Personnel Name: Phil Anglin RN Position: [facility] RN Member Role: Primary Care Nurse Name: Katya Hudson NP Position: [facility] Outreach Member Role: PCP Address: Address: [address] [place] [address]- Care Team Related Persons Name: ALFREDO VILLANUEVA Address: [address] [place] [address] Name: SMOOTH HAJI Name: DENNY HAJI Address: [address] [place] [address]
--- OUTSIDE RECORDS SUMMARY | 2023-06-03 02:14 | XMS_ITS | Continuity of Care Document ---
Author Name Unknown Organization [facility] Address [address] [place] [address]- Care Team Providers Care Epic Prelude Analyst Name Role Phone Tristan WOUND/OSTOMY CLINICAL NURSE SPECIALIST, Katya Dee Primary Care Physician Encounter [facility] [place] Date(s): 12/14/19 - 01/13/20 [facility] [address] [place] [address]- [facility] Attending Physician: Dean Darden Admitting Physician: AdmtrDean Referring Physician: Admtr ArKaci Allergies, Adverse Reactions, Alerts Substance Reaction Severity Status penicillin Anaphylaxis Anaphylactic reaction Active Tomatoes hives Active erythromycin anaphylaxis Anaphylactic reaction Active Immunizations Given and Recorded Vaccine Date Status Refusal Reason tetanus/diphtheria/pertussis, acel(Tdap) 01/14/17 Given Medications Abilify 5 mg oral tablet 5 mg, 1, tablet, By Mouth, Daily, # 30 tablet, Refills 0, Tot. Refills 0, Maintenance, 07/15/19 10:02:00 EST, Route to Pharmacy Electronically, [facility]/pharmacy #[id number], 165, cm, 07/15/19 9:12:00 EST, Height, [...] each, 4 Refills, Maintenance, 09/22/19 10:32:00 EST, [facility]/pharmacy #[id number], Please call if not covered by [...] 0 Refills, Maintenance, 07/15/19 10:00:00 EST, Tablet, [facility]/pharmacy #1234, 165, cm, 07/15/19 9:12:00 EST, Height, [...]
--- OUTSIDE RECORDS SUMMARY | 2023-06-03 02:14 | XMS_ITS | Continuity of Care Document ---
Author Name Unknown Organization [facility] heather Address [address] [place] [address] [address] [place] [address]- Care Team Providers Care Administrative Technician Name Role Phone Tristan TRANSMISSION SPECIALIST, Katya Dee Primary Care Physician [phone] Encounter [facility] [place] [id number] Date(s): 02/08/21 - 02/15/21 [facility] [address] [place], [place] [address] Attending Physician: Breanna LUI, Lm Allergies, Adverse Reactions, Alerts Substance Reaction Severity [...] 12/23/20 10:20:00 EDT, Route to Pharmacy Electronically, [facility]/pharmacy #1234 Tablet, Partial fill u... Start [...]
--- OUTSIDE RECORDS SUMMARY | 2023-06-03 02:14 | XMS_ITS | Continuity of Care Document ---
Author Name Unknown Organization [facility] heather Address [address] [place] [address] [address] [place] [address]- Care Team Providers Care Senior Controls Technician Name Role Phone Tristan ACKERMAN, Katya Dee Primary Care Physician Encounter [facility] [place] Date(s): 01/02/21 - 03/07/21 [facility] [address] [place] [address]- Attending Physician: Breanna LUI, Lm Referring Physician: [...] 07/15/19 10:02:00 EST, Route to Pharmacy Electronically, [facility]/pharmacy #[id number], 165, cm, 07/15/19 9:12:00 EST, [...] 12/23/20 10:20:00 EDT, Route to Pharmacy Electronically, [facility]/pharmacy #1234 Tablet, Partial fill u... Start [...] each, 4 Refills, Maintenance, 09/22/19 10:32:00 EST, [facility]/pharmacy #[id number], Please call if not covered [...] 0 Refills, Maintenance, 07/15/19 10:00:00 EST, Tablet, [facility]/pharmacy #[id number], 165, cm, 07/15/19 9:12:00 EST, [...]
--- OUTSIDE RECORDS SUMMARY | 2023-06-03 02:14 | XMS_ITS | Continuity of Care Document ---
Author Name Unknown Organization [facility] Address [address] [facility], 3r d Floor, [address] [place] [address]- Care Team Providers Care Bulk Tank Driver Name Role Phone Not on Staff, PCP Primary Care Physician Unavail able Encounter [facility] [place] Date(s): 08/09/19 - 08/19/19 [facility] [address] [place], 3rd Floor, [address] [place] [address] [facility] Attending Physician: Dean Darden Admitting Physician: Dean Darden Referring Physician: Dean Darden Referring Physician: Tristan ACKERMAN, Katya Allergies, Adverse Reactions, Alerts Substance Reaction Severity [...] 10:02:00 EST, Route to Pharmacy Electronically, [facility]/pharmacy #[id number], 165, cm, 07/15/19 9:12:00 EST, Height, 77.2, kg, 07/12/19 14:05:00 EST, Dry Weight Start Date: 07/15/19 Stop Date: 08/14/19 Status: Ordered Ambien 10 mg oral tablet 1 tablet = 10 mg, By Mouth, Daily at bedtime, PRN for sleep, 0 Refills, Maintenance, 01/14/17 10:59:58, Tablet Start Date: 01/14/17 Status: Ordered Combivent Respimat CFC free 20 mcg-100 mcg/inh inhalation aerosol 1 puffs, Inhalation, 4 times a day, PRN Wheezing/Shortness of Breath, # 1 each, 6 Refills, Maintenance, 10/03/17 17:13:02, Aerosol, 1 puffs Inhalation 4 times a day,PRN:Wheezing/Shortness of Breath Start Date: 04/28/17 Status: Ordered cyclobenzaprine 5 mg oral tablet 1 tablet = 5 mg, By Mouth, 3 times a day, PRN Pain , Moderate, 0 Refills, Maintenance, 07/12/19 14:27:23 EST Start Date: 07/12/19 Status: Ordered levothyroxine 0.025 mg oral tablet [...] Anxiety and depression(Confirmed) Active Multiple sclerosis(Confirmed) Active Current smoker(Confirmed) Active Social History Social History Type Response Smoking Status 5-9 cigarettes (betw een 1/4 to 1/2 pack)/day in last 30 days entered on: 07/11/19 Sex
--- OUTSIDE RECORDS SUMMARY | 2023-06-03 02:14 | XMS_ITS | Continuity of Care Document ---
Author Name Unknown Organization [facility] Address [address] [place] [address]- Care Team Providers Care Ham Stripper Name Role Phone Tristan ACKERMAN, Katya Dee Primary Care Physician Encounter [facility] [place] Date(s): 07/04/22 - 08/09/[address] [address] Attending Physician: Katya Hudson NP Admitting Physician: Tristan ACKERMAN, Katya Dee Allergies, Adverse Reactions, Alerts Substance Reaction Severity Status Tomatoes hives Active erythromycin anaphylaxis Anaphylactic reaction Active penicillin Anaphylaxis Anaphylactic reaction Active Immunizations Given and Recorded Vaccine Date Status Refusal Reason SARS-CoV-2 mRNA ([id number]) vax 12/14/21 Recorded SARS-CoV-2 (COVID-19) mRNA BNT-162b2 [...] 0 Refills, Maintenance, 03/22/21 10:09:00 EDT, Tablet, [facility]/pharmacy #1234, Partial fill upon patient [...] Team Personnel Name: Phil Anglin RN Position: [facility] RN Member Role: Primary Care Nurse Name: Katya Hudson NP Position: [facility] Outreach Member Role: PCP Address: Address: [address] [place] [address]- Care Team Related Persons Name: ALFREDO VILLANUEVA Address: [address] [place] [address] Name: SMOOTH HAJI Name: DENNY HAJI Address: [address] [place] [address]
--- OUTSIDE RECORDS SUMMARY | 2023-06-03 02:14 | XMS_ITS | Continuity of Care Document ---
Author Name Unknown Organization [facility] Address [address] [facility], 3r d Floor, [address] [place] [address]- Care Team Providers Care Nutrition Aides Teacher Name Role Phone Not on Staff, PCP Primary Care Physician Unavail able Encounter [facility] [place] Date(s): 07/14/19 - 09/08/19 [facility] [address] [place], 3rd Floor, [address] [place] [address] [facility] Attending Physician: Vel lÁvarez Admitting Physician: Vel Álvarez Allergies, Adverse Reactions, Alerts Substance Reaction Severity [...] Ordered diclofenac potassium 50 mg oral tablet 1 tablet = 50 mg, By Mouth, 3 times a day, PRN Pain , Moderate, for 5 days, # 15 tablet, 0 Refills,Acute 09/10/19 10:24:00 EST, 09/05/19 10:24:00 EST, Tablet, [facility]/pharmacy #1234, 168, cm, 09/05/19 9:27:00 EST, Height, 77.9, kg, 09/05/19 9:27:00 EST,... Start Date: 09/05/19 Stop Date: 09/10/19 Status: Ordered levothyroxine 0.025 mg oral tablet [...] patch, 0 Refills, Maintenance, 09/05/19 10:24:00 EST, [facility]/pharmacy #1234, 1 patch Topically Daily,Instr... Start Date: [...]
--- OUTSIDE RECORDS SUMMARY | 2023-06-03 02:14 | XMS_ITS | Continuity of Care Document ---
Author Name Unknown Organization [facility] ter Address [address] [place] [address]- Care Team Providers Care Well Drill Operator Rotary Drill Name Role Phone Tristan GRAIN MERCHANDISER, Katya Dee Primary Care Physician [phone] Encounter [facility] Date(s): 12/21/20 - 12/21/[address] [address] Disposition: A-D/C Home Attending Physician: Lm Carlos MD Admitting Physician: Lm Carlos MD Referring Physician: Lm Carlos MD Allergies, Adverse Reactions, Alerts Substance Reaction Severity Status Tomatoes hives Active penicillin Anaphylaxis Anaphylactic reaction Active erythromycin anaphylaxis Anaphylactic reaction Active Immunizations Given and Recorded Vaccine Date Status Refusal Reason tetanus/diphtheria/pertussis, acel(Tdap) 01/14/17 Given Medications Abilify 5 mg oral tablet 5 mg, 1, tablet, By Mouth, Daily, # 30 tablet, Refills 0, Tot. Refills 0, Maintenance, 07/15/19 10:02:00 EST, Route to Pharmacy Electronically, [facility]/pharmacy #[id number], 165, cm, 07/15/19 9:12:00 EST, [...] each, 4 Refills, Maintenance, 09/22/19 10:32:00 EST, [facility]/pharmacy #1234, Please call if not covered by insurance., 1 puffs Inhalation Daily, 168, cm, 09/22/19 10:09:00EST, Height, 77.9, kg, 09/05/19 9:27:00 EST, Dry We... Start Date: 09/22/19 Status: Ordered Bactrim 400 mg-80 mg oral tablet 1 tablet, By Mouth, 2 times a day, # 10 tablet, 0 Refills, Acute 12/26/20 9:42:00 EDT, 12/21/20 9:41:00 EDT, Tablet, [facility]/pharmacy #1234, Partial fill upon patient request if the prescription is for aschedule II opioid drug., 1 tablet By Mouth 2 times... Start Date: 12/21/20 Stop Date: 12/26/20 Status: Ordered Combivent Respimat CFC free 20 [...] 11:41:00 EDT Start Date: 05/13/20 Status: Ordered oxyCODONE 5 mg oral tablet 5 mg, 1, tablet, By Mouth, Every 6 hours, PRN, # 5 tablet, Refills 0, Tot. Refills 0, Acute 12/24/20 9:41:00 EDT, as needed for pain, 12/21/20 9:41:00 EDT, Route to Pharmacy Electronically, [facility]/pharmacy #1234, Partial fill upon patient request if the... Start Date: 12/21/20 Stop Date: 12/24/20 Status: Ordered OxyCODONE IR Tablet 10 mg, Tablet, By Mouth, Every 4 hours, in PACU ONLY, if patient can tolerate PO, PRN for Pain , Moderate, Routine, 12/21/20 8:00:00 EDT Start Date: 12/21/20 Stop Date: 12/21/20 Status: Discontinued pregabalin 200 mg oral capsule 1 capsule = 200 mg, By Mouth, 2 times a day, 0 Refills, Maintenance, 05/13/20 11:42:00 EDT, Capsule Start Date: 05/13/20 Status: Ordered SEROquel 50 mg oral tablet 1 tablet = 50 mg, By Mouth, Daily at bedtime, # 30 tablet, 0 Refills, Maintenance, 07/15/19 10:00:00 EST, Tablet, [facility]/pharmacy #1234, 165, cm, 07/15/19 9:12:00 EST, [...] Active COPD, severe(Confirmed) Active Current smoker(Confirmed) Active Results Orders for Microbiology Reports Name Date Anaerobic Culture (Culture Anaerobic) Fungal Culture, Nonrespiratory (FUNGAL C ULT,NON-RESPIRATORY) 12/21/20 Tissue Culture w/ Gram Smear (TISSUE/BIO PSY CULT.) 12/21/20 Microbiology Reports TEST:Anaerobic Culture STATUS:Unauthenticated BODY SITE: SOURCE:TISSUE1 COLLECTED DATE/TIME:12/21/20 9:15 AM Anaerobic Culture SPECIMEN DESCRIPTION : TISSUE RIGHT DORSAL FOREARM SPECIAL REQUESTS : NONE REPORT STATUS : PRELIMINARY REPORT TEST:Tissue/Biopsy Culture STATUS:Unauthenticated BODY SITE: SOURCE:TISSUE1 COLLECTED DATE/TIME:12/21/20 9:15 AM Tissue/Biopsy Culture SPECIMEN DESCRIPTION : TISSUE RIGHT DORSAL FOREARM SPECIAL REQUESTS : NONE GRAM STAIN : 1+ SQ.EPITHELIAL CELLS NO ORGANISMS SEEN REPORT STATUS : PRELIMINARY REPORT TEST:Fungal Culture, Non-Respiratory STATUS:Unauthenticated BODY SITE: SOURCE:TISSUE1 COLLECTED DATE/TIME:12/21/20 9:15 AM Fungal Culture, Non-Respiratory SPECIMEN DESCRIPTION : TISSUE RIGHT DORSAL FOREARM SPECIAL REQUESTS : NONE REPORT STATUS : PRELIMINARY REPORT Vital Signs Most recent to oldest [Reference Range]: 1 2 3 Weight 80.1 kg (12/21/20 6:35 AM) Oxygen Saturation [94-100 %] 96 % (12/21/20 10:30 AM) 95 % (12/21/20 10:15 AM) 96 % (12/21/20 10:15 AM) Pulse Rate [55-90 bpm] 98 bpm *H* (12/21/20 6:35 AM) Blood Pressure [90-138/55-84 mm Hg] 151/97mm Hg *H* (12/21/20 10:30 AM) 133/93mm Hg (12/21/20 10:15 AM) 133/93mm Hg (12/21/20 10:15 AM) Respiratory Rate [16-30 br/min] 13 br/min *L* (12/21/20 10:30 AM) 18 br/min (12/21/20 10:18 AM) 16 br/min (12/21/20 10:00 AM) Temperature [96.8-100.4 DegF] 96.5 DegF *L* (12/21/20 9:45 AM) 97.6 DegF (12/21/20 6:35 AM) Liters per Minute 4 L/min (12/21/20 9:45 AM) Mode of Delivery (Oxygen) Room air (12/21/20 10:30 AM) Room air (12/21/20 10:15 AM) Room air (12/21/20 10:15 AM) Blood pressure sites Arm, left (12/21/20 6:35 AM) Temperature Route Temporal (12/21/20 9:45 AM) Temporal (12/21/20 6:35 AM) Social History Social History Type Response Smoking [...]
--- OUTSIDE RECORDS SUMMARY | 2023-06-03 02:14 | XMS_ITS | Continuity of Care Document ---
Author Name Unknown Organization [facility] Address [address] [facility], 3r d Floor, [address] [place] [address]- Care Team Providers Care Batch Unloader Name Role Phone Not on Staff, PCP Primary Care Physician Unavail able [place] [facility] Date(s): 06/10/19 - 08/28/19 [facility] [address] [place], 3rd Floor, [address] [place] [address] [facility] Attending Physician: Vel Álvarez Admitting Physician: Vel Álvarez Referring Physician: Zach ACKERMAN, Brenda Skinner Allergies, Adverse Reactions, Alerts Substance Reaction Severity Status erythromycin anaphylaxis Anaphylactic reaction Active penicillin Anaphylaxis Anaphylactic reaction Active Tomatoes hives Active Immunizations Given and Recorded Vaccine Date Status Refusal Reason tetanus/diphtheria/pertussis, acel(Tdap) 01/14/17 Given Medications Abilify 5 mg oral tablet 5 mg, 1, tablet, By Mouth, Daily, # 30 tablet, Refills 0, Tot. Refills 0, Maintenance, 07/15/19 10:02:00 EST, Route to Pharmacy Electronically, [facility]/pharmacy #[id number], 165, cm, 07/15/19 9:12:00 EST, [...]
--- OUTSIDE RECORDS SUMMARY | 2023-06-03 02:14 | XMS_ITS | Continuity of Care Document ---
Author Name Unknown Organization [facility] heather Address [address] [place] [address] [address] [place] [address]- Care Team Providers Care De Icer Element Winder Name Role Phone Tristan CRAB CATCHER, Katya Dee Primary Care Physician Encounter [facility] [place] Date(s): 01/18/21 - 02/17/21 [facility] [address] [place] [address]- Allergies, Adverse Reactions, Alerts Substance Reaction Severity Status erythromycin anaphylaxis Anaphylactic reaction Active penicillin Anaphylaxis Anaphylactic reaction Active Tomatoes hives Active Immunizations Given and Recorded Vaccine Date Status Refusal Reason tetanus/diphtheria/pertussis, acel(Tdap) 01/14/17 Given Medications Abilify 5 mg oral tablet 5 mg, 1, tablet, By Mouth, Daily, # 30 tablet, Refills 0, Tot. Refills 0, Maintenance, 07/15/19 10:02:00 EST, Route to Pharmacy Electronically, [facility]/pharmacy #1234, 165, cm, 07/15/19 9:12:00 EST, [...] 12/23/20 10:20:00 EDT, Route to Pharmacy Electronically, [facility]/pharmacy #1234 Tablet, Partial fill u... Start [...] 0 Refills, Maintenance, 07/15/19 10:00:00 EST, Tablet, [facility]/pharmacy #1234, 165, cm, 07/15/19 9:12:00 EST, [...]
--- OUTSIDE RECORDS SUMMARY | 2023-06-03 02:14 | XMS_ITS | Continuity of Care Document ---
Author Name Unknown Organization [facility] heather Address [address] [place] [address] [address] [place] [address]- Care Team Providers Care Internal Medicine Nurse Name Role Phone Tristan ACKERMAN, Katya Dee Primary Care Physician [place] [facility] [place] Date(s): 02/05/21 - 04/04/21 [facility] [address] [place], [place] [address] Attending Physician: Lm Carlos MD Referring Physician: Tristan ACKERMAN, Katya Dee Allergies, [...] 03/22/21 10:08:00 EDT, Route to Pharmacy Electronically, [facility]/pharmacy #1234, 168, cm, 03/22/21 10:10:00 EDT, Height, [...] 0 Refills, Maintenance, 03/22/21 10:09:00 EDT, Inhaler, [facility]/pharmacy #1234, Partial fill upon patient request if the prescription is for a schedule II opioid drug., 1 puffs Inhalation Daily, 168, cm, 03/22/21 10:1... Start Date: 03/22/21 Status: Ordered gabapentin 100 mg oral capsule 100 mg, 1, capsule, By Mouth, 4 times a day, # 120 capsule, Refills 0, Tot. Refills 0, Maintenance,03/22/21 10:09:00 EDT, Route to Pharmacy Electronically, [facility]/pharmacy #1234, Partial fill upon patient request if the prescription is for a schedule II... Start Date: 03/22/21 Status: Ordered levothyroxine 0.1 mg oral tablet 1 tablet = 100 mcg, By Mouth, Daily, # 30 tablet, 0 Refills, Maintenance, 03/22/21 10:09:00 EDT, Tablet, [facility]/pharmacy #1234, Partial fill upon patient request if the prescription is for a schedule IIopioid drug., 168, cm, 03/22/21 10:10:00 EDT, Heigh... Start Date: 03/22/21 Status: Ordered Nicoderm C-Q Clear 21 mg/24 hr transdermal film, extended release See Instructions, one daily, # 21 patch, 0 Refills, Maintenance, 03/22/21 10:10:00 EDT, [facility]/pharmacy #1234, Partial fill upon patient request if [...] 03/22/21 10:09:00 EDT, Route to Pharmacy Electronically, [facility]/pharmacy #1234, Partial fill upon patientrequest if the prescription [...]
--- OUTSIDE RECORDS SUMMARY | 2023-06-03 02:14 | XMS_ITS | Continuity of Care Document ---
Author Name Unknown Organization [facility] ter Address [address] [place] [address]- Care Team Providers Care Curtain Worker Name Role Phone Tristan BLOOD OR BLOOD BANK TECHNICIAN, Katya Dee Primary Care Physician Encounter [facility] Date(s): 01/25/21 - 01/25/[address] [address]- Discharge Disposition: A-D/C Home Attending Physician: Lm [...] 07/15/19 10:02:00 EST, Route to Pharmacy Electronically, [facility]/pharmacy #1234, 165, cm, 07/15/19 9:12:00 [...] 12/23/20 10:20:00 EDT, Route to Pharmacy Electronically, [facility]/pharmacy #1234 Tablet, Partial fill u... [...] each, 4 Refills, Maintenance, 09/22/19 10:32:00 EST, [facility]/pharmacy #1234, Please call if not [...] Date: 12/23/20 Stop Date: 12/28/20 Status: Ordered oxyCODONE 5 mg oral tablet 5 mg, 1, tablet, By Mouth, Every 4 hours, PRN, for 3 days, # 7 tablet, Refills 0, Tot. Refills 0, Acute 01/28/21 9:42:00 EDT, Pain , Mild, 01/25/21 9:42:00 EDT, Route to Pharmacy Electronically, [facility]/pharmacy #1234, Partial fill upon patient request if... Start Date: 01/25/21 Stop Date: 01/28/21 Status: Ordered OxyCODONE IR Tablet 5 mg, Tablet, By Mouth, Every 4 hours, in PACU ONLY, if patient can tolerate PO, PRN for Pain , Mild, Routine, 01/25/21 8:20:00 EDT Start Date: 01/25/21 Stop Date: 01/25/21 Status: Discontinued pregabalin 200 mg oral capsule 1 capsule = 200 mg, By Mouth, 2 times a day, 0 Refills, Maintenance, 05/13/20 11:42:00 EDT, Capsule Start Date: 05/13/20 Status: Ordered SEROquel 50 mg oral tablet 1 tablet = 50 mg, By Mouth, Daily at bedtime, # 30 tablet, 0 Refills, Maintenance, 07/15/19 10:00:00 EST, Tablet, [facility]/pharmacy #1234, 165, cm, 07/15/19 9:12:00 [...] 9:42:00 EDT, 01/25/21 9:42:00 EDT, ER Tablet, [facility]/pharmacy #1234, Partial fill upon patient [...] oldest [Reference Range]: 1 2 3 Weight 80 kg (01/25/21 6:28 AM) Oxygen Saturation [94-100 %] 92 % *L* (01/25/21 10:30 AM) 92 % *L* (01/25/21 10:15 AM) 95 % (01/25/21 10:00 AM) Pulse Rate [55-90 bpm] 80 bpm (01/25/21 6:28 AM) Blood Pressure [90-138/55-84 mm Hg] 100/69mm Hg (01/25/21 10:30 AM) 104/69mm Hg (01/25/21 10:15 AM) 97/56mm Hg (01/25/21 10:00 AM) Respiratory Rate [16-30 br/min] 12 br/min *L* (01/25/21 10:30 AM) 12 br/min *L* (01/25/21 10:15 AM) 16 br/min (01/25/21 10:07 AM) Temperature [96.8-100.4 DegF] 97 DegF (01/25/21 10:00 AM) 97 DegF (01/25/21 9:00 AM) 97.1 DegF (01/25/21 6:28 AM) Mode of Delivery (Oxygen) Room air (01/25/21 10:30 AM) Room air (01/25/21 10:15 AM) Room air (01/25/21 10:00 AM) Temperature Route Temporal (01/25/21 10:00 AM) Temporal (01/25/21 9:00 AM) Temporal (01/25/21 6:28 AM) Social History Social History Type Response [...]
--- OUTSIDE RECORDS SUMMARY | 2023-06-03 02:14 | XMS_ITS | Continuity of Care Document ---
Author Name Unknown Organization [facility] heather Address [address] [place] [address] [address] [place] [address]- Care Team Providers Care Configuration Analyst Name Role Phone Tristan ACTUARIAL MATHEMATICIAN, Katya Dee Primary Care Physician Encounter [facility] [place] ACCT R [id number] Date(s): 01/01/21 - 01/08/21 [facility] [address] [place], [place] [address] Attending Physician: Breanna LUI, Lm Allergies, [...] 07/15/19 10:02:00 EST, Route to Pharmacy Electronically, [facility]/pharmacy #1234, 165, cm, 07/15/19 [...] 12/23/20 10:20:00 EDT, Route to Pharmacy Electronically, [facility]/pharmacy #1234 Tablet, Partial fill [...] each, 4 Refills, Maintenance, 09/22/19 10:32:00 EST, [facility]/pharmacy #1234, Please call if [...] 0 Refills, Maintenance, 07/15/19 10:00:00 EST, Tablet, [facility]/pharmacy #1234, 165, cm, 07/15/19 [...] oldest [Reference Range]: 1 Height 168 cm (01/01/21 3:32 PM) Weight 77 kg (01/01/21 3:32 PM) Body Mass Index [18.5-24.99] 27.28 *H* (01/01/21 3:32 PM) Temperature [96.8-100.4 DegF] 98.6 DegF (01/01/21 3:32 PM) Social History Social History Type Response [...]
--- OUTSIDE RECORDS SUMMARY | 2023-06-03 02:15 | XMS_ITS | Continuity of Care Document ---
Author Name Unknown Organization [facility] Address [address] [place] [id number]- Care Team Providers Care Fisheries Director Name Role Phone Tristan ACKERMAN, Katya Dee Primary Care Physician [phone] Encounter [facility] Date(s): 08/12/22 - 09/11/[address] [address] Attending Physician: Admtr, Ar8 Admitting Physician: Admtr, Ar8 Referring Physician: Admtr, Ar8 Allergies, Adverse Reactions, Alerts Substance Reaction Severity Status Tomatoes hives Active erythromycin anaphylaxis Anaphylactic reaction Active penicillin Anaphylaxis Anaphylactic reaction Active Immunizations Given and Recorded Vaccine Date Status Refusal Reason SARS-CoV-2 mRNA ([id number]) vax 12/14/21 Recorded SARS-CoV-2 (COVID-19) mRNA BNT-162b2 [...] 0 Refills, Maintenance, 03/22/21 10:09:00 EDT, Tablet, [facility]/pharmacy #[id number], Partial fill upon patient request if the prescription is for a schedule IIopioid drug., 168, cm, 03/22/21 10:10:00 EDT, .. Start Date: 03/22/21 Status: Ordered pregabalin 75 [...] Team Personnel Name: Phil Anglin RN Position: [facility] RN Member Role: Primary Care Nurse Name: Katya Hudson NP Position: [facility] Outreach Member Role: PCP Address: Address: [address] [place] [id number]- Care Team Related Persons Name: ALFREDO VILLANUEVA Address: [address] [place] [address] Name: SMOOTH HAJI Name: DENNY HAJI Address: [address] [place] [address]
[2023-06-03 02:42] VITALS: BMI 27.2
[2023-06-03 03:22] VITALS: BP 127/68; PULSE 87; RESP 18; TEMP 36; O2SAT 95
--- NOTE | 2023-06-03 04:01 | PC.NURSE ---
Admission Note: Nelly Chance, a 58-year-old female patient, was transferred from [facility] and admitted to on 06/03/23 at 0215. The Patient is admitted here with a chief complaint of suicidal ideation with a plan to stop taking her medication. The Patient signed the CV on arrival. The Patient denied suicidality at this time and contracted for safety. There is no history of suicidal attempts. The Patient endorsed depression and anxiety 10/10 triggered by homelessness and hopelessness. The Patient is alert and oriented x 4. The Patient is diagnosed with Bipolar disorder, anxiety, and depression. She is currently off her medication for two weeks and coping with cocaine use. In addition to that, the Patient has multiple sclerosis, Hypothyroidism, and COPD. No respiratory distress was observed/reported at this time. The Patient has a history of multiple falls and uses a cane to ambulate. Patients engaged well with admission intake. Medication reconciliation was completed based on the pharmacy claim history, pending provider's approval. Provider notified, order in place, and 15-minute safety check initiated. The Patient, currently in bed, appears to be sleeping, respiration +/=/unlabored bilaterally.
[2023-06-03] MEDS: Levothyroxine Sodium 100 MCG TABLET PO (06:26)
[2023-06-03 08:25] VITALS: BP 124/66; PULSE 94; RESP 16; TEMP 36.8; O2SAT 96
[2023-06-03] MEDS: QUEtiapine Fumarate 100 MG TABLET PO ×3 (08:39→19:32)
[2023-06-03] MEDS: busPIRone HCl 10 MG TABLET PO ×3 (08:39→19:33)
[2023-06-03] MEDS: Cholecalciferol (Vitamin D3) 25 MCG TABLET 50 MCG PO (08:39)
[2023-06-03] MEDS: ARIPiprazole 10 MG TABLET PO (08:39)
[2023-06-03] MEDS: Pregabalin 75 MG CAPSULE PO ×2 (08:39→19:33)
[2023-06-03 08:47] LABS: Estimated Average Glucose 114 mg/dL; Hemoglobin A1c % 5.6 % (<6.0)
[2023-06-03] MEDS: ALPRAZolam 0.5 MG TABLET 1 MG PO ×2 (08:50→14:14)
[2023-06-03 09:04] LABS: Alanine Aminotransferase 19 U/L (0-31); Albumin Level 3.9 g/dL (3.5-5.0); Alkaline Phosphatase 60 U/L (39-117); Anion Gap 11 (12-20); Aspartate Amino Transferase 14 U/L (5-31); Bilirubin Total 0.2 mg/dL (0.0-1.0); Blood Urea Nitrogen 26 mg/dL (9-16); Calcium 9.2 mg/dL (8.4-10.2); Carbon Dioxide 29 mmol/L (22-29); Chloride 106 mmol/L (96-108); Cholesterol 177 mg/dL (<200); Creatinine Clr Calc Pharmacy 63.8; Estimated Glomerular Filt Rate 58; Glucose Fasting 106 mg/dL (60-99); HDL Cholesterol 50 mg/dL (>40); LDL Cholesterol Calculated 88 mg/dL (<100); Potassium 4.2 mmol/L (3.3-5.1); Sodium 142 mmol/L (135-145); Total Protein 6.5 g/dL (6.5-8.0); Triglycerides 198 mg/dL (<150)
[2023-06-03 09:23] LABS: Free T4 (Free Thyroxine) 0.73 ng/dL (0.71-1.85); Thyroid Stimulating Hormone 7.91 uIU/mL (0.32-4.0)
[2023-06-03 09:27] LABS: Folate 4.7 ng/mL (> or = 4.0); Vitamin B12 621 pg/mL (200-900)
[2023-06-03] MEDS: Atorvastatin Calcium 10 MG TABLET PO (10:47)
[2023-06-03 11:30] VITALS: PULSE 76; RESP 16; O2SAT 96
[2023-06-03] MEDS: Albuterol/Iprat 2.5/0.5MG 3 ML AMPUL.NEB INHALE (11:30)
--- NOTE | 2023-06-03 11:35 | P.CONHOSP_ITS ---
History of Present Illness Data of Consult Service Date: 06/03/23 Primary Care Provider: Unknown Physician HPI Reason for consult: Routine medical H&P This is a 58 yo F who is admitted to . Patient is a vague historian and is uncertain of her chronic medical diagnosis. She currently denies any physical complaints. No cp, sob, cough, abd pain. PMH COPD Question MS (does not currently see a Neurologist) HLD Hypothyroidism PSH Appendecomty SH Denies alcohol or active ilicit substance use; states used cocaine last week x 1 FH reports her family is healthy Review of Systems 2 Review of Systems: Negative except HPI/interval history. [facility] Medical History (Updated 06/03/23 @ 11:40 by Fabián Cruz MD) Fibromyalgia COPD (chronic obstructive pulmonary disease) History of substance abuse Bipolar disorder Hypothyroidism Multiple diaphyseal sclerosis Family History Father History of throat cancer Mother Alive and well Surgical History History of hernia repair History of appendectomy Social History Household Members: None Housing: Homeless Do you presently have visiting nurse or other home services: No Alcohol intake: never Patient Tobacco Use Status: Current everyday Tobacco user Tobacco use type: Cigarette Cigarettes Per Day: 6 Smoked in Last 30 Days: Yes e-Cigarette/Vaping Use: Never Used Patient Given Instructions on How to Stop Smoking: Yes Date Education Initiated: 06/03/23 Second Hand Smoke Exposure: Yes Use of substances other than those prescribed or required for medical reasons: Yes Substance Use Type: Crack/Cocaine Substance Use Frequency: Occasionally Last Used Substance: Days (ago) Currently Displaying Signs/Symptoms of Drug Intoxication Withdrawal: No Any prior treatment program specific to substance use: No Advance Directives: No Advance Directives Information Provided: No Do you have thoughts of harming others: None Do you have a plan to hurt others: No Plan Recently lost weight without trying: No Nutrition Risks: No Nutritional Risk Patient : No : No Poor oral hygiene: No Meds Allergies Allergy/AdvReac Type Severity Reaction Status Date / Time Penicillins [PENICILLINS] Allergy Unknown UNKNOWN Verified 12/04/20 09:04 tomato AdvReac Severe Swelling Verified 06/03/23 03:09 Erythromycin Allergy Unknown Unknown Uncoded 12/04/20 09:04 Active Medications: Current Medications Acetaminophen (Acetaminophen 325 Mg Tablet) 650 mg PO Q6H PRN PRN Reason: Headache/Pain Mild Scale (1-3) Al Hydroxide/Mg Hydroxide (Magnesium Hydrox/Alum Hydrox 30 Ml Oral.Susp) 30 ml PO Q6H PRN PRN Reason: Heartburn/Nausea Albuterol/Ipratropium (Albuterol/Iprat 2.5/0.5mg 3 Ml Ampul.Neb) 3 ml INHALE RQ6H ON LICENSE OF [facility] Last Admin: 06/03/23 11:30 Dose: 3 ml Alprazolam (Alprazolam 0.5 Mg Tablet) 1 mg PO TID PRN PRN Reason: Anxiety Last Admin: 06/03/23 08:50 Dose: 1 mg Aripiprazole (Aripiprazole 10 Mg Tablet) 10 mg PO DAILY ON LICENSE OF [facility] Last Admin: 06/03/23 08:39 Dose: 10 mg Atorvastatin Calcium (Atorvastatin Calcium 10 Mg Tablet) 10 mg PO DAILY ON LICENSE OF [facility] Last Admin: 06/03/23 10:47 Dose: 10 mg Buspirone HCl (Buspirone Hcl 10 Mg Tablet) 10 mg PO TID ON LICENSE OF [facility] Last Admin: 06/03/23 08:39 Dose: 10 mg Hydroxyzine HCl (Hydroxyzine Hcl 25 Mg Tablet) 25 mg PO Q6H PRN PRN Reason: Anxiety Levothyroxine Sodium (Levothyroxine Sodium 100 Mcg Tablet) 100 mcg PO DAILY@0600 ON LICENSE OF [facility] Last Admin: 06/03/23 06:26 Dose: 100 mcg Magnesium Hydroxide (Milk Of Magnesia 30 Ml Oral.Susp) 30 ml PO DAILY PRN PRN Reason: Constipation Non-Formulary Medication (Anoro Ellipta) 1 inhalation INHALE DAILY ON LICENSE OF [facility] Pregabalin (Pregabalin 75 Mg Capsule) 75 mg PO BID ON LICENSE OF [facility] Last Admin: 06/03/23 08:39 Dose: 75 mg Quetiapine Fumarate (Quetiapine Fumarate 100 Mg Tablet) 100 mg PO TID ON LICENSE OF [facility] Last Admin: 06/03/23 08:39 Dose: 100 mg Trazodone HCl (Trazodone Hcl 50 Mg Tablet) 50 mg PO BEDTIME MRX1 PRN PRN Reason: Insomnia Vitamin D (Cholecalciferol (Vitamin D3) 25 Mcg Tablet) 50 mcg PO DAILY [facility] Last Admin: 06/03/23 08:39 Dose: 50 mcg Zolpidem Tartrate (Zolpidem Tartrate 5 Mg Tablet) 10 mg PO BEDTIME PRN PRN Reason: Insomnia Home Medications Medication Instructions Recorded Confirmed Last Taken Type alprazolam 1 mg tablet 1 mg PO TID PRN anxiety 06/03/23 06/03/23 Unknown History aripiprazole 10 mg tablet 10 mg PO DAILY 06/03/23 06/03/23 Unknown History buspirone 10 mg tablet 10 mg PO TID 06/03/23 06/03/23 Unknown History cholecalciferol (vitamin D3) 50 50 mcg PO DAILY 06/03/23 06/03/23 Unknown History mcg (2,000 unit) capsule ipratropium 20 mcg-albuterol 100 1 puff inhalation QID 06/03/23 06/03/23 Unknown History mcg/actuation mist for inhalation (Combivent Respimat) levothyroxine 100 mcg tablet 100 mcg PO DAILY 06/03/23 06/03/23 Unknown History pregabalin 75 mg capsule 75 mg PO BID 06/03/23 06/03/23 Unknown History quetiapine 100 mg tablet 100 mg PO TID 06/03/23 06/03/23 Unknown History rosuvastatin 10 mg tablet 10 mg PO QAM 06/03/23 06/03/23 Unknown History umeclidinium 62.5 mcg-vilanterol 1 ea inhalation DAILY 06/03/23 06/03/23 Unknown History 25 mcg/actuation powdr for inhalation (Anoro Ellipta) zolpidem 10 mg tablet 10 mg PO BEDTIME PRN insomnia 06/03/23 06/03/23 Unknown History Physical Exam 2 Vital Signs and Narrative: Vital Signs: Last Vital Signs Temp 98.3 F 06/03/23 08:25 Pulse 76 06/03/23 11:30 Resp 16 06/03/23 11:30 BP 124/66 06/03/23 08:25 Pulse Ox 96 06/03/23 08:25 O2 Del Method Room Air 06/03/23 08:25 BMI result Body Mass Index 27.2 Const: Other: General - no acute distress, appears comfortable Cardiovascular - regular rate and rhythm, S1-S2 Lungs - normal respiratory effort, clear to auscultation bilaterally, no wheezing Abdomen - soft, nontender, no rebound or guarding Extremities - no edema bilaterally Neuro - awake and alert, no focal deficits; cn 2-12 intact b/l Results Labs 06/03/23 08:03 Labs: Laboratory Results - last 24 hr 06/03/23 08:03 Anion Gap 11 L Estim Creat Clear Calc 63.8 Estimated GFR 58 Fasting Glucose 106 H Estimat Average Glucose 114 Hemoglobin A1c % 5.6 Calcium 9.2 Magnesium 2.0 Total Bilirubin 0.2 AST 14 ALT 19 Alkaline Phosphatase 60 Total Protein 6.5 Albumin 3.9 Triglycerides 198 H Cholesterol 177 LDL Cholesterol, Calc 88 HDL Cholesterol 50 Vitamin B12 621 Folate 4.7 TSH 7.91 H Free T4 0.73 Assessment and Plan (1) COPD (chronic obstructive pulmonary disease): Status: Acute Plan 58 yo F with HLD, COPD, hypothyroidism, ? MS who is admitted to . Medical consult requested for routine medical H&P. Pt denies any active medical complaints. Continue her baseline inhalers, statin, thyroid meds Pt has been counseled on age appropriate health maintenance Appears to be medically stable at this time. Will sign off. Please reconsult PRN.
[2023-06-03] MEDS: Acetaminophen 325 MG TABLET 650 MG PO (16:12)
--- NOTE | 2023-06-03 16:22 | P.HPPS_ITS ---
HPI Date of Service: 06/03/23 Chief Complaint: Bipolar Depression, Cocaine Use Disorder Sources of Information: patient interviewed, chart reviewed and crisis/core team assessment reviewed HPI Subjective Notes: [facility] Warning and 3 Day Healthcare Proxy: No Guardianship: No Medical Problems Affecting Mental Status: No Narrative: 58 yo female, transfer from [place], history of bipolar disorder, depression, anxiety, substance use presents with increase in sx, cocaine use and with SI, intrusive thoughts, poor sleep and appetite,exacerbation of medical issues including MS, thyroid disease, COPD and disc disease due to homelessness. Reports non compliance with medication regime. Pt is crying extensively during our meeting, states she is homeless because, when manic, she allowed several people to live in her home, sell drugs, take drugs and she never paid rent. I did not think they would kick me out. Past Psychiatric History: IP: Several when younger, with decrease in frequency with age. Last admit one year ago. [facility] is her unit of choice. She grieves the recent closing. OP: Cooper Koehler APRN [facility] Trials: Several SA: Many SI-persistant, passive due to homelessness. Medical Evaluation Reviewed: Yes [facility] Medical History (Updated 06/03/23 @ 17:33 by Annamarie Aguilera APRN) Bipolar disorder, now depressed Cocaine use disorder Recurrent major depression Fibromyalgia COPD (chronic obstructive pulmonary disease) History of substance abuse Bipolar disorder Hypothyroidism Multiple diaphyseal sclerosis Surgical History History of hernia repair History of appendectomy Family History: affirms both addiction and mental health history Social History: Born in [place], 3 sisters, 2 brothers, 1 younger sister has . Close to family when she sees them. Mom with alcoholism when raising pt- sober for many years. She was tough but we were taken care of. 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 One daughter 42, sons 27,26, one daughter Dana has of a heroin OD, one daughter Jody has addiction (5 children, each 6 years apart), 10 grandchildren, 1 great grandchild. Substance History: Polysubstance hx, hx of several detox admits Cocaine currently Trauma History: Affirms Diagnostics Vital Signs (24Hr): Vital Signs - 24 hr 06/03/23 03:22 06/03/23 08:25 06/03/23 11:30 Temperature 96.8 F 98.3 F Pulse Rate 87 94 76 Respiratory Rate 18 16 16 Blood Pressure 127/68 124/66 Pulse Oximetry 95 96 Oxygen Delivery Method Room Air Room Air BMI result Body Mass Index 27.2 Labs 06/03/23 08:03 Labs: Laboratory Results - last 48 hr 06/03/23 08:03 Sodium 142 Potassium 4.2 Chloride 106 Carbon Dioxide 29 Anion Gap 11 L BUN 26 H Creatinine 0.98 Estim Creat Clear Calc 63.8 Estimated GFR 58 Fasting Glucose 106 H Estimat Average Glucose 114 Hemoglobin A1c % 5.6 Calcium 9.2 Magnesium 2.0 Total Bilirubin 0.2 AST 14 ALT 19 Alkaline Phosphatase 60 Total Protein 6.5 Albumin 3.9 Triglycerides 198 H Cholesterol 177 LDL Cholesterol, Calc 88 HDL Cholesterol 50 Vitamin B12 621 Folate 4.7 TSH 7.91 H Free T4 0.73 Meds/Allergies Meds Home Medications Medication Instructions Recorded Confirmed Type alprazolam 1 mg tablet 1 mg PO TID PRN anxiety 06/03/23 06/03/23 History aripiprazole 10 mg tablet 10 mg PO DAILY 06/03/23 06/03/23 History buspirone 10 mg tablet 10 mg PO TID 06/03/23 06/03/23 History cholecalciferol (vitamin D3) 50 50 mcg PO DAILY 06/03/23 06/03/23 History mcg (2,000 unit) capsule ipratropium 20 mcg-albuterol 100 1 puff inhalation QID 06/03/23 06/03/23 History mcg/actuation mist for inhalation (Combivent Respimat) levothyroxine 100 mcg tablet 100 mcg PO DAILY 06/03/23 06/03/23 History pregabalin 75 mg capsule 75 mg PO BID 06/03/23 06/03/23 History quetiapine 100 mg tablet 100 mg PO TID 06/03/23 06/03/23 History rosuvastatin 10 mg tablet 10 mg PO QAM 06/03/23 06/03/23 History umeclidinium 62.5 mcg-vilanterol 1 ea inhalation DAILY 06/03/23 06/03/23 History 25 mcg/actuation powdr for inhalation (Anoro Ellipta) zolpidem 10 mg tablet 10 mg PO BEDTIME PRN insomnia 06/03/23 06/03/23 History Allergies Allergies Allergy/AdvReac Type Severity Reaction Status Date / Time Penicillins [PENICILLINS] Allergy Unknown UNKNOWN Verified 12/04/20 09:04 tomato AdvReac Severe Swelling Verified 06/03/23 03:09 Erythromycin Allergy Unknown Unknown Uncoded 12/04/20 09:04 Mental Status Exam Mental Status Exam Patient Appearance: Fatigued Patient Orientation: Person, Place, Time and Situation Level of Consciousness: Alert Patient Behavior: Talkative, Cooperative and Good Eye Contact Mood Description: Depressed Affect Description: Flat Patient Cognition Impaired: No Ability to Follow Directions: Fair Speech Pattern: Spontaneous Speech and Soft-Spoken Memory Description: Episodic Impaired Hallucinations: None Delusions: Not Present Perceptual Disturbances: Depersonalization Thought Process: Rumination Thought Content: positive for Circumstantial and positive for Suicidal Ideation Depressive Symptoms: Difficulty Sleeping, Changes in Appetite, Hopelessness, Unhappiness, Increased Fatigue, Thoughts of /Suicide, Low Self Esteem and Difficulty Concentrating Judgement: Fair Assessment & Plan Assessment & Plan (1) Bipolar disorder, now depressed: Status: Acute Code(s): F31.30 - Bipolar disorder, current episode depressed, mild or moderate severity, unspecified (2) Cocaine use disorder: Status: Acute Code(s): F14.10 - Cocaine abuse, uncomplicated Plan 58 yo female, history of bipolar disorder and polysubstance use, presents in transfer from [place] for SI in the context of stopping medications and homelessness along with medical issues. Plan: Resume previous regime which pt reports was effective Oxycodone 5 mg q 12 hours-leg pain from MS Collateral contact Diagnostics as needed Aftercare planning. Patient educated on: medication risk/benefits, therapeutic strategies and medical condition Informed Consent: further education needed Reason for continued inpatient stay Substantial Risk for: med/psych decompensation Statement Statement: I have reviewed the history and physical and performed a pertinent examination on my patient. No changes have occurred unless specified. If the History and Physical was not performed prior to admission, the Hospitalist's service will be consulted for completing the admission physical. Time Spent With Patient Time: Total time managing care of this patient today ____ minutes.
[2023-06-03] MEDS: oxyCODONE HCl Immed Release 5 MG TABLET PO (17:11)
[2023-06-03 18:00] VITALS: BP 110/58; PULSE 98; RESP 16; O2SAT 94
[2023-06-03] MEDS: Zolpidem Tartrate 5 MG TABLET 10 MG PO (19:33)
[2023-06-04] MEDS: oxyCODONE HCl Immed Release 5 MG TABLET PO ×2 (06:14→17:07)
[2023-06-04] MEDS: Levothyroxine Sodium 100 MCG TABLET PO (06:15)
[2023-06-04] MEDS: ALPRAZolam 0.5 MG TABLET 1 MG PO ×3 (06:15→17:10)
[2023-06-04] MEDS: Albuterol/Iprat 2.5/0.5MG 3 ML AMPUL.NEB INHALE (06:46)
[2023-06-04 06:47] VITALS: PULSE 98; RESP 16; O2SAT 96
[2023-06-04 08:00] VITALS: BP 123/72; PULSE 89; RESP 16; TEMP 36.4; O2SAT 98
[2023-06-04] MEDS: Pregabalin 75 MG CAPSULE PO (08:55)
[2023-06-04] MEDS: QUEtiapine Fumarate 100 MG TABLET PO ×3 (08:55→20:03)
[2023-06-04] MEDS: ARIPiprazole 10 MG TABLET PO (08:55)
[2023-06-04] MEDS: Cholecalciferol (Vitamin D3) 25 MCG TABLET 50 MCG PO (08:55)
[2023-06-04] MEDS: Atorvastatin Calcium 10 MG TABLET PO (08:55)
[2023-06-04] MEDS: busPIRone HCl 10 MG TABLET PO ×3 (08:55→20:03)
[2023-06-04] MEDS: hydrOXYzine HCL 25 MG TABLET PO (10:23)
[2023-06-04 14:13] VITALS: BMI 28.4
--- NOTE | 2023-06-04 16:16 | HO.PSYCHPN ---
Subjective Subjective Date of Service: 06/04/23 Reason For Visit: Bipolar Depression, Cocaine Use Disorder Subjective Notes: Conditional Voluntary Healthcare Proxy: No Guardianship: No Medical Problems Affecting Mental Status: No Interim History: Pt reports L sided pain, 1.5 weeks s/p stepping on a nail. Reports cookie had managed MS pain well until this occurred. Pain meds adjusted, tetanus shot ordered. Pt is depressed, labile, crying, fearful of homelessness, remorseful of how she managed her last apartment and resulting eviction. Team is working on resources. Pt on the unit, reports pain, is med seeking (discussed with her) and is depressed and anxious. Encouraged to work in milieu on current sx. Medication Compliance: Yes Side effects from medications: No Attending Groups: No Review of Systems Acute medical concerns: No Medical Review of Systems: unchanged Mental Status Exam Mental Status Exam Patient Appearance: Fatigued Patient Orientation: Person, Place, Time and Situation Level of Consciousness: Alert Patient Behavior: Talkative, Cooperative, Good Eye Contact and Crying Mood Description: Depressed Affect Description: Flat Patient Cognition Impaired: No Ability to Follow Directions: Fair Speech Pattern: Spontaneous Speech and Soft-Spoken Memory Description: Episodic Impaired Hallucinations: None Delusions: Not Present Perceptual Disturbances: Depersonalization Thought Process: Rumination Thought Content: positive for Circumstantial and positive for Suicidal Ideation Depressive Symptoms: Difficulty Sleeping, Changes in Appetite, Hopelessness, Unhappiness, Increased Fatigue, Thoughts of /Suicide, Low Self Esteem and Difficulty Concentrating Judgement: Fair Diagnostics Vital Signs (24Hr): Vital Signs - 24 hr 06/03/23 18:00 06/04/23 06:47 06/04/23 08:00 Temperature 97.6 F Pulse Rate 98 98 89 Respiratory Rate 16 16 16 Blood Pressure 110/58 L 123/72 Pulse Oximetry 94 98 Oxygen Delivery Method Room Air Room Air BMI result Body Mass Index 28.4 Labs 06/03/23 08:03 Labs: Laboratory Results - last 48 hr 06/03/23 08:03 Sodium 142 Potassium 4.2 Chloride 106 Carbon Dioxide 29 Anion Gap 11 L BUN 26 H Creatinine 0.98 Estim Creat Clear Calc 63.8 Estimated GFR 58 Fasting Glucose 106 H Estimat Average Glucose 114 Hemoglobin A1c % 5.6 Calcium 9.2 Magnesium 2.0 Total Bilirubin 0.2 AST 14 ALT 19 Alkaline Phosphatase 60 Total Protein 6.5 Albumin 3.9 Triglycerides 198 H Cholesterol 177 LDL Cholesterol, Calc 88 HDL Cholesterol 50 Vitamin B12 621 Folate 4.7 TSH 7.91 H Free T4 0.73 Medications Medications Current Medications Acetaminophen (Acetaminophen 325 Mg Tablet) 650 mg PO Q6H PRN PRN Reason: Headache/Pain Mild Scale (1-3) Last Admin: 06/03/23 16:12 Dose: 650 mg Al Hydroxide/Mg Hydroxide (Magnesium Hydrox/Alum Hydrox 30 Ml Oral.Susp) 30 ml PO Q6H PRN PRN Reason: Heartburn/Nausea Albuterol Sulfate (Albuterol Sulfate 90 Mcg 8 Gm Inhaler) 2 puff INHALE Q6H PRN PRN Reason: Shortness of Breath/Wheezing Alprazolam (Alprazolam 0.5 Mg Tablet) 1 mg PO TID PRN PRN Reason: Anxiety Last Admin: 06/04/23 11:03 Dose: 1 mg Aripiprazole (Aripiprazole 10 Mg Tablet) 10 mg PO DAILY [facility] Last Admin: 06/04/23 08:55 Dose: 10 mg Atorvastatin Calcium (Atorvastatin Calcium 10 Mg Tablet) 10 mg PO DAILY [facility] Last Admin: 06/04/23 08:55 Dose: 10 mg Buspirone HCl (Buspirone Hcl 10 Mg Tablet) 10 mg PO TID [facility] Last Admin: 06/04/23 14:11 Dose: 10 mg Hydroxyzine HCl (Hydroxyzine Hcl 25 Mg Tablet) 25 mg PO Q6H PRN PRN Reason: Anxiety Last Admin: 06/04/23 10:23 Dose: 25 mg Levothyroxine Sodium (Levothyroxine Sodium 100 Mcg Tablet) 100 mcg PO DAILY@0600 [facility] Last Admin: 06/04/23 06:15 Dose: 100 mcg Magnesium Hydroxide (Milk Of Magnesia 30 Ml Oral.Susp) 30 ml PO DAILY PRN PRN Reason: Constipation Multivitamins/Vitamin C (Multivitamin Tablet) 1 tab PO DAILY [facility] Nicotine (Nicotine 21 Mg Patch.Td24) 21 mg TRANSDERMA DAILY [facility] Pt Own(Anoro Ellipta (1 Inhalation)) 1 inhalation INHALE RDAILY [facility] Last Admin: 06/04/23 12:47 Dose: 1 inhalation Oxycodone HCl (Oxycodone Hcl Immed Release 5 Mg Tablet) 5 mg PO Q12H PRN PRN Reason: severe hip pain Last Admin: 06/04/23 06:14 Dose: 5 mg Pregabalin (Pregabalin 100 Mg Capsule) 100 mg PO BID [facility] Quetiapine Fumarate (Quetiapine Fumarate 100 Mg Tablet) 100 mg PO TID [facility] Last Admin: 06/04/23 14:11 Dose: 100 mg Trazodone HCl (Trazodone Hcl 50 Mg Tablet) 50 mg PO BEDTIME MRX1 PRN PRN Reason: Insomnia Vitamin D (Cholecalciferol (Vitamin D3) 25 Mcg Tablet) 50 mcg PO DAILY [facility] Last Admin: 06/04/23 08:55 Dose: 50 mcg Zolpidem Tartrate (Zolpidem Tartrate 5 Mg Tablet) 10 mg PO BEDTIME PRN PRN Reason: Insomnia Last Admin: 06/03/23 19:33 Dose: 10 mg Allergies Allergies Allergy/AdvReac Type Severity Reaction Status Date / Time Penicillins [PENICILLINS] Allergy Unknown UNKNOWN Verified 12/04/20 09:04 tomato AdvReac Severe Swelling Verified 06/03/23 03:09 Erythromycin Allergy Unknown Unknown Uncoded 12/04/20 09:04 Assessment & Plan Assessment & Plan (1) Bipolar disorder, now depressed: Status: Acute Code(s): F31.30 - Bipolar disorder, current episode depressed, mild or moderate severity, unspecified (2) Cocaine use disorder: Status: Acute Code(s): F14.10 - Cocaine abuse, uncomplicated Plan 58 yo female, history of bipolar disorder and polysubstance use, presents in transfer from [place] for SI in the context of stopping medications and homelessness along with medical issues. Plan: Resume previous regime which pt reports was effective Oxycodone 5 mg q 12 hours-leg pain from MS Collateral contact Diagnostics as needed Aftercare planning. 06/04/23 Pain, agitation, fear of homelessness Plan: Tetanus injection Trileptal 300 mg hs to help with mood, anxiety Pain meds have been adjusted Patient educated on: therapeutic strategies Informed Consent: understands Reason for continued inpatient stay Substantial Risk for: rapid decompensation and med/psych decompensation Time Spent With Patient Time: Total time managing care of this patient today ____ minutes.
[2023-06-04 17:00] VITALS: BP 109/52; PULSE 111; TEMP 35.9; O2SAT 97
[2023-06-04] MEDS: Nicotine 21 MG PATCH.TD24 TRANSDERMA (17:07)
[2023-06-04] MEDS: OXcarbazepine 300 MG TABLET PO (20:03)
[2023-06-04] MEDS: Pregabalin 100 MG CAPSULE PO (20:03)
[2023-06-04] MEDS: Magnesium Hydrox/Alum Hydrox 30 ML ORAL.SUSP PO (20:15)
[2023-06-05] MEDS: oxyCODONE HCl Immed Release 5 MG TABLET PO ×3 (01:52→18:29)
[2023-06-05] MEDS: hydrOXYzine HCL 25 MG TABLET PO ×3 (01:53→19:37)
[2023-06-05] MEDS: ALPRAZolam 0.5 MG TABLET 1 MG PO ×3 (01:53→18:29)
[2023-06-05] MEDS: Levothyroxine Sodium 100 MCG TABLET PO (06:15)
[2023-06-05 08:00] VITALS: BP 128/72; PULSE 87; RESP 16; TEMP 36.4; O2SAT 96
[2023-06-05] MEDS: QUEtiapine Fumarate 100 MG TABLET PO ×3 (08:33→19:37)
[2023-06-05] MEDS: Multivitamin TABLET 1 TAB PO (08:34)
[2023-06-05] MEDS: Cholecalciferol (Vitamin D3) 25 MCG TABLET 50 MCG PO (08:34)
[2023-06-05] MEDS: Atorvastatin Calcium 10 MG TABLET PO (08:34)
[2023-06-05] MEDS: ARIPiprazole 10 MG TABLET PO (08:34)
[2023-06-05] MEDS: Pregabalin 100 MG CAPSULE PO ×2 (08:34→19:37)
[2023-06-05] MEDS: busPIRone HCl 10 MG TABLET PO ×3 (08:34→19:37)
[2023-06-05] MEDS: Nicotine 21 MG PATCH.TD24 TRANSDERMA (08:35)
[2023-06-05] MEDS: Diphth,Pertus(ACell),Tet Adult 0.5 ML SYRINGE IM (13:13)
--- NOTE | 2023-06-05 14:47 | P.PNPSI_ITS ---
Subjective Subjective Date of Service: 06/05/23 Reason For Visit: Bipolar Depression, Cocaine Use Disorder Subjective Notes: Conditional Voluntary Healthcare Proxy: No Guardianship: No Medical Problems Affecting Mental Status: No Interim History: Crying, continues to focus on lack of housing resources for herself and homelessness. Team has arranged an appt for 06/08 for pt to review community resources available for her. Encouraged to work in the milieu to help manage her symptoms. Medication Compliance: Yes Side effects from medications: No Attending Groups: Intermittent Review of Systems Acute medical concerns: No Medical Review of Systems: unchanged Mental Status Exam Mental Status Exam Patient Appearance: Fatigued Patient Orientation: Person, Place, Time and Situation Level of Consciousness: Alert Patient Behavior: Talkative, Cooperative, Good Eye Contact and Crying Mood Description: Depressed Affect Description: Flat Patient Cognition Impaired: No Ability to Follow Directions: Fair Speech Pattern: Spontaneous Speech and Soft-Spoken Memory Description: Episodic Impaired Hallucinations: None Delusions: Not Present Perceptual Disturbances: Depersonalization Thought Process: Rumination Thought Content: positive for Circumstantial and positive for Suicidal Ideation Depressive Symptoms: Difficulty Sleeping, Changes in Appetite, Hopelessness, Unhappiness, Increased Fatigue, Thoughts of /Suicide, Low Self Esteem and Difficulty Concentrating Judgement: Fair Diagnostics Vital Signs (24Hr): Vital Signs - 24 hr 06/04/23 17:00 06/05/23 08:00 Temperature 96.6 F L 97.5 F Pulse Rate 111 H 87 Respiratory Rate 16 Blood Pressure 109/52 L 128/72 Pulse Oximetry 97 96 Oxygen Delivery Method Room Air Room Air BMI result Body Mass Index 28.4 Labs 06/03/23 08:03 Medications Medications Current Medications Acetaminophen (Acetaminophen 325 Mg Tablet) 650 mg PO Q6H PRN PRN Reason: Headache/Pain Mild Scale (1-3) Last Admin: 06/03/23 16:12 Dose: 650 mg Al Hydroxide/Mg Hydroxide (Magnesium Hydrox/Alum Hydrox 30 Ml Oral.Susp) 30 ml PO Q6H PRN PRN Reason: Heartburn/Nausea Last Admin: 06/04/23 20:15 Dose: 30 ml Albuterol Sulfate (Albuterol Sulfate 90 Mcg 8 Gm Inhaler) 2 puff INHALE Q6H PRN PRN Reason: Shortness of Breath/Wheezing Alprazolam (Alprazolam 0.5 Mg Tablet) 1 mg PO TID PRN PRN Reason: Anxiety Last Admin: 06/05/23 08:39 Dose: 1 mg Aripiprazole (Aripiprazole 10 Mg Tablet) 10 mg PO DAILY [facility] Last Admin: 06/05/23 08:34 Dose: 10 mg Atorvastatin Calcium (Atorvastatin Calcium 10 Mg Tablet) 10 mg PO DAILY [facility] Last Admin: 06/05/23 08:34 Dose: 10 mg Buspirone HCl (Buspirone Hcl 10 Mg Tablet) 10 mg PO TID [facility] Last Admin: 06/05/23 14:11 Dose: 10 mg Hydroxyzine HCl (Hydroxyzine Hcl 25 Mg Tablet) 25 mg PO Q6H PRN PRN Reason: Anxiety Last Admin: 06/05/23 12:36 Dose: 25 mg Levothyroxine Sodium (Levothyroxine Sodium 100 Mcg Tablet) 100 mcg PO DAILY@0600 [facility] Last Admin: 06/05/23 06:15 Dose: 100 mcg Magnesium Hydroxide (Milk Of Magnesia 30 Ml Oral.Susp) 30 ml PO DAILY PRN PRN Reason: Constipation Multivitamins/Vitamin C (Multivitamin Tablet) 1 tab PO DAILY [facility] Last Admin: 06/05/23 08:34 Dose: 1 tab Nicotine (Nicotine 21 Mg Patch.Td24) 21 mg TRANSDERMA DAILY [facility] Last Admin: 06/05/23 08:35 Dose: 21 mg Pt Own(Anoro Ellipta (1 Inhalation)) 1 inhalation INHALE RDAILY [facility] Last Admin: 06/05/23 08:37 Dose: 1 inhalation Oxcarbazepine (Oxcarbazepine 300 Mg Tablet) 300 mg PO BEDTIME [facility] Last Admin: 06/04/23 20:03 Dose: 300 mg Oxycodone HCl (Oxycodone Hcl Immed Release 5 Mg Tablet) 5 mg PO Q8H PRN PRN Reason: severe hip pain Last Admin: 06/05/23 10:05 Dose: 5 mg Pregabalin (Pregabalin 100 Mg Capsule) 100 mg PO BID [facility] Last Admin: 06/05/23 08:34 Dose: 100 mg Quetiapine Fumarate (Quetiapine Fumarate 100 Mg Tablet) 100 mg PO TID [facility] Last Admin: 06/05/23 14:11 Dose: 100 mg Trazodone HCl (Trazodone Hcl 50 Mg Tablet) 50 mg PO BEDTIME MRX1 PRN PRN Reason: Insomnia Vitamin D (Cholecalciferol (Vitamin D3) 25 Mcg Tablet) 50 mcg PO DAILY [facility] Last Admin: 06/05/23 08:34 Dose: 50 mcg Zolpidem Tartrate (Zolpidem Tartrate 5 Mg Tablet) 10 mg PO BEDTIME PRN PRN Reason: Insomnia Last Admin: 06/03/23 19:33 Dose: 10 mg Allergies Allergies Allergy/AdvReac Type Severity Reaction Status Date / Time Penicillins [PENICILLINS] Allergy Unknown UNKNOWN Verified 12/04/20 09:04 tomato AdvReac Severe Swelling Verified 06/03/23 03:09 Erythromycin Allergy Unknown Unknown Uncoded 12/04/20 09:04 Assessment & Plan Assessment & Plan (1) Bipolar disorder, now depressed: Status: Acute Code(s): F31.30 - Bipolar disorder, current episode depressed, mild or moderate severity, unspecified (2) Cocaine use disorder: Status: Acute Code(s): F14.10 - Cocaine abuse, uncomplicated Plan 58 yo female, history of bipolar disorder and polysubstance use, presents in transfer from [place] for in the context of stopping medications and homelessness along with medical issues. Plan: Resume previous regime which pt reports was effective Oxycodone 5 mg q 12 hours-leg pain from [place] Collateral contact Diagnostics as needed Aftercare planning. 06/05/23 Continue current plan of care Encourage milieu participation and communication Patient educated on: therapeutic strategies Informed Consent: understands Reason for continued inpatient stay Substantial Risk for: rapid decompensation Time Spent With Patient Time: Total time managing care of this patient today ____ minutes.
[2023-06-05 18:00] VITALS: BP 122/66; PULSE 97; TEMP 36.6; O2SAT 95
[2023-06-05] MEDS: OXcarbazepine 300 MG TABLET PO (19:37)
[2023-06-05] MEDS: Zolpidem Tartrate 5 MG TABLET 10 MG PO (19:38)
[2023-06-05] MEDS: traZODone HCL 50 MG TABLET PO (22:37)
[2023-06-06] MEDS: ALPRAZolam 0.5 MG TABLET 1 MG PO ×3 (03:01→19:01)
[2023-06-06] MEDS: oxyCODONE HCl Immed Release 5 MG TABLET PO ×3 (03:01→19:01)
[2023-06-06] MEDS: Levothyroxine Sodium 100 MCG TABLET PO (06:05)
[2023-06-06 08:14] VITALS: BP 109/53; PULSE 73; RESP 16; TEMP 36.2; O2SAT 95
[2023-06-06] MEDS: hydrOXYzine HCL 25 MG TABLET PO ×2 (08:16→14:40)
[2023-06-06] MEDS: Pregabalin 100 MG CAPSULE PO ×2 (08:16→20:03)
[2023-06-06] MEDS: ARIPiprazole 10 MG TABLET PO (08:16)
[2023-06-06] MEDS: Atorvastatin Calcium 10 MG TABLET PO (08:16)
[2023-06-06] MEDS: Cholecalciferol (Vitamin D3) 25 MCG TABLET 50 MCG PO (08:16)
[2023-06-06] MEDS: Multivitamin TABLET 1 TAB PO (08:16)
[2023-06-06] MEDS: QUEtiapine Fumarate 100 MG TABLET PO ×3 (08:16→20:04)
[2023-06-06] MEDS: Nicotine 21 MG PATCH.TD24 TRANSDERMA (08:16)
[2023-06-06] MEDS: busPIRone HCl 10 MG TABLET PO ×3 (08:16→20:04)
--- NOTE | 2023-06-06 10:39 | P.PNPSI_ITS ---
Subjective Subjective Date of Service: 06/06/23 Reason For Visit: Bipolar Depression, Cocaine Use Disorder Interim History: Crying, continues to focus on lack of housing resources for herself and homelessness. Team has arranged an appt for 06/08 for pt to review community resources available for her. Encouraged to work in the milieu to help manage her symptoms. pt wanting ensure supplement; less anxious today Medication Compliance: Yes Side effects from medications: No Attending Groups: Intermittent Review of Systems Acute medical concerns: No Medical Review of Systems: unchanged Review of Systems Review of Systems Negative except HPI/interval history. Musculoskeletal: Reports abnormal gait, Reports back pain and Reports myalgias Reports abnormal gait Mental Status Exam Mental Status Exam Patient Appearance: Fatigued Patient Orientation: Person, Place, Time and Situation Level of Consciousness: Alert Patient Behavior: Talkative, Cooperative, Good Eye Contact and Crying Mood Description: Depressed Affect Description: Flat Patient Cognition Impaired: No Ability to Follow Directions: Fair Speech Pattern: Spontaneous Speech and Soft-Spoken Memory Description: Episodic Impaired Judgement: Fair Diagnostics Vital Signs (24Hr): Vital Signs - 24 hr 06/05/23 18:00 06/06/23 08:14 Temperature 97.9 F 97.2 F Pulse Rate 97 73 Respiratory Rate 16 Blood Pressure 122/66 109/53 L Pulse Oximetry 95 95 Oxygen Delivery Method Room Air Room Air BMI result Body Mass Index 28.4 Labs 06/03/23 08:03 Medications Medications Current Medications Acetaminophen (Acetaminophen 325 Mg Tablet) 650 mg PO Q6H PRN PRN Reason: Headache/Pain Mild Scale (1-3) Last Admin: 06/03/23 16:12 Dose: 650 mg Al Hydroxide/Mg Hydroxide (Magnesium Hydrox/Alum Hydrox 30 Ml Oral.Susp) 30 ml PO Q6H PRN PRN Reason: Heartburn/Nausea Last Admin: 06/04/23 20:15 Dose: 30 ml Albuterol Sulfate (Albuterol Sulfate 90 Mcg 8 Gm Inhaler) 2 puff INHALE Q6H PRN PRN Reason: Shortness of Breath/Wheezing Alprazolam (Alprazolam 0.5 Mg Tablet) 1 mg PO TID PRN PRN Reason: Anxiety Last Admin: 06/06/23 03:01 Dose: 1 mg Aripiprazole (Aripiprazole 10 Mg Tablet) 10 mg PO DAILY [facility] Last Admin: 06/06/23 08:16 Dose: 10 mg Atorvastatin Calcium (Atorvastatin Calcium 10 Mg Tablet) 10 mg PO DAILY [facility] Last Admin: 06/06/23 08:16 Dose: 10 mg Buspirone HCl (Buspirone Hcl 10 Mg Tablet) 10 mg PO TID [facility] Last Admin: 06/06/23 08:16 Dose: 10 mg Hydroxyzine HCl (Hydroxyzine Hcl 25 Mg Tablet) 25 mg PO Q6H PRN PRN Reason: Anxiety Last Admin: 06/06/23 08:16 Dose: 25 mg Levothyroxine Sodium (Levothyroxine Sodium 100 Mcg Tablet) 100 mcg PO DAILY@0600 [facility] Last Admin: 06/06/23 06:05 Dose: 100 mcg Magnesium Hydroxide (Milk Of Magnesia 30 Ml Oral.Susp) 30 ml PO DAILY PRN PRN Reason: Constipation Multivitamins/Vitamin C (Multivitamin Tablet) 1 tab PO DAILY [facility] Last Admin: 06/06/23 08:16 Dose: 1 tab Nicotine (Nicotine 21 Mg Patch.Td24) 21 mg TRANSDERMA DAILY [facility] Last Admin: 06/06/23 08:16 Dose: 21 mg Pt Own(Anoro Ellipta (1 Inhalation)) 1 inhalation INHALE RDAILY [facility] Last Admin: 06/06/23 08:16 Dose: 1 inhalation Oxcarbazepine (Oxcarbazepine 300 Mg Tablet) 300 mg PO BEDTIME [facility] Last Admin: 06/05/23 19:37 Dose: 300 mg Oxycodone HCl (Oxycodone Hcl Immed Release 5 Mg Tablet) 5 mg PO Q8H PRN PRN Reason: severe hip pain Last Admin: 06/06/23 03:01 Dose: 5 mg Pregabalin (Pregabalin 100 Mg Capsule) 100 mg PO BID [facility] Last Admin: 06/06/23 08:16 Dose: 100 mg Quetiapine Fumarate (Quetiapine Fumarate 100 Mg Tablet) 100 mg PO TID [facility] Last Admin: 06/06/23 08:16 Dose: 100 mg Trazodone HCl (Trazodone Hcl 50 Mg Tablet) 50 mg PO BEDTIME MRX1 PRN PRN Reason: Insomnia Last Admin: 06/05/23 22:37 Dose: 50 mg Vitamin D (Cholecalciferol (Vitamin D3) 25 Mcg Tablet) 50 mcg PO DAILY [facility] Last Admin: 06/06/23 08:16 Dose: 50 mcg Zolpidem Tartrate (Zolpidem Tartrate 5 Mg Tablet) 10 mg PO BEDTIME PRN PRN Reason: Insomnia Last Admin: 06/05/23 19:38 Dose: 10 mg Allergies Allergies Allergy/AdvReac Type Severity Reaction Status Date / Time Penicillins [PENICILLINS] Allergy Unknown UNKNOWN Verified 12/04/20 09:04 tomato AdvReac Severe Swelling Verified 06/03/23 03:09 Erythromycin Allergy Unknown Unknown Uncoded 12/04/20 09:04 Assessment & Plan Assessment & Plan (1) Bipolar disorder, now depressed: Status: Acute Code(s): F31.30 - Bipolar disorder, current episode depressed, mild or moderate severity, unspecified (2) Cocaine use disorder: Status: Acute Code(s): F14.10 - Cocaine abuse, uncomplicated Plan 58 yo female, history of bipolar disorder and polysubstance use, presents in transfer from [place] for SI in the context of stopping medications and homelessness along with medical issues. Plan: Resume previous regime which pt reports was effective Oxycodone 5 mg q 12 hours-leg pain from [place] Collateral contact Diagnostics as needed Aftercare planning. 06/05/23 Continue current plan of care Encourage milieu participation and communication 06/06/23 ensure plus ordered with meals continue tx plan Reason for continued inpatient stay Substantial Risk for: inability to function and rapid decompensation Time Spent With Patient Time: Total time managing care of this patient today ____ minutes.
[2023-06-06 20:00] VITALS: BP 108/67; PULSE 91; TEMP 36.2
[2023-06-06] MEDS: OXcarbazepine 300 MG TABLET PO (20:04)
[2023-06-07] MEDS: hydrOXYzine HCL 25 MG TABLET PO ×2 (00:47→07:48)
[2023-06-07] MEDS: Acetaminophen 325 MG TABLET 650 MG PO (00:47)
[2023-06-07] MEDS: ALPRAZolam 0.5 MG TABLET 1 MG PO ×3 (05:09→19:28)
[2023-06-07] MEDS: Levothyroxine Sodium 100 MCG TABLET PO (05:09)
[2023-06-07] MEDS: Albuterol Sulfate 90 MCG 8 GM INHALER 2 PUFF INHALE (05:10)
[2023-06-07] MEDS: oxyCODONE HCl Immed Release 5 MG TABLET PO ×3 (05:10→19:28)
[2023-06-07] MEDS: Pregabalin 100 MG CAPSULE PO ×2 (07:48→19:28)
[2023-06-07] MEDS: QUEtiapine Fumarate 100 MG TABLET PO ×3 (07:48→19:27)
[2023-06-07] MEDS: Cholecalciferol (Vitamin D3) 25 MCG TABLET 50 MCG PO (07:48)
[2023-06-07] MEDS: Multivitamin TABLET 1 TAB PO (07:49)
[2023-06-07] MEDS: Nicotine 21 MG PATCH.TD24 TRANSDERMA (07:49)
[2023-06-07] MEDS: Atorvastatin Calcium 10 MG TABLET PO (07:49)
[2023-06-07] MEDS: ARIPiprazole 10 MG TABLET PO (07:49)
[2023-06-07] MEDS: busPIRone HCl 10 MG TABLET PO ×3 (07:49→19:28)
[2023-06-07 08:22] VITALS: BP 129/70; PULSE 89; RESP 20; TEMP 35.8; O2SAT 97
[2023-06-07 17:05] VITALS: BP 119/58; PULSE 105; RESP 16; TEMP 37; O2SAT 94
--- NOTE | 2023-06-07 18:40 | HO.PSYCHPN ---
Subjective Subjective Date of Service: 06/07/23 Reason For Visit: Bipolar Depression, Cocaine Use Disorder Subjective Notes: Conditional Voluntary Interim History: Pt anxious and irritable at times; focused on PRN meds; worried about housing. less anxious today Medication Compliance: Yes Side effects from medications: No Attending Groups: Intermittent Review of Systems Medical Review of Systems: unchanged Review of Systems Review of Systems Negative except HPI/interval history. Musculoskeletal: Reports abnormal gait, Reports back pain and Reports myalgias Reports abnormal gait Mental Status Exam Mental Status Exam Patient Appearance: Fatigued Patient Orientation: Person, Place, Time and Situation Level of Consciousness: Alert Patient Behavior: Talkative, Cooperative, Good Eye Contact and Crying Mood Description: Depressed Affect Description: Flat Patient Cognition Impaired: No Ability to Follow Directions: Fair Speech Pattern: Spontaneous Speech and Soft-Spoken Memory Description: Episodic Impaired Judgement: Fair Diagnostics Vital Signs (24Hr): Vital Signs - 24 hr 06/06/23 20:00 06/07/23 08:22 06/07/23 17:05 Temperature 97.2 F 96.4 F L 98.6 F Pulse Rate 91 89 105 H Respiratory Rate 20 16 Blood Pressure 108/67 129/70 119/58 L Pulse Oximetry 97 94 Oxygen Delivery Method Room Air Room Air BMI result Body Mass Index 28.4 Labs 06/03/23 08:03 Medications Medications Current Medications Acetaminophen (Acetaminophen 325 Mg Tablet) 650 mg PO Q6H PRN PRN Reason: Headache/Pain Mild Scale (1-3) Last Admin: 06/07/23 00:47 Dose: 650 mg Al Hydroxide/Mg Hydroxide (Magnesium Hydrox/Alum Hydrox 30 Ml Oral.Susp) 30 ml PO Q6H PRN PRN Reason: Heartburn/Nausea Last Admin: 06/04/23 20:15 Dose: 30 ml Albuterol Sulfate (Albuterol Sulfate 90 Mcg 8 Gm Inhaler) 2 puff INHALE Q6H PRN PRN Reason: Shortness of Breath/Wheezing Last Admin: 06/07/23 05:10 Dose: 2 puff Alprazolam (Alprazolam 0.5 Mg Tablet) 1 mg PO TID PRN PRN Reason: Anxiety Last Admin: 06/07/23 13:05 Dose: 1 mg Aripiprazole (Aripiprazole 10 Mg Tablet) 10 mg PO DAILY [facility] Last Admin: 06/07/23 07:49 Dose: 10 mg Atorvastatin Calcium (Atorvastatin Calcium 10 Mg Tablet) 10 mg PO DAILY [facility] Last Admin: 06/07/23 07:49 Dose: 10 mg Buspirone HCl (Buspirone Hcl 10 Mg Tablet) 10 mg PO TID [facility] Last Admin: 06/07/23 14:55 Dose: 10 mg Hydroxyzine HCl (Hydroxyzine Hcl 25 Mg Tablet) 25 mg PO Q6H PRN PRN Reason: Anxiety Last Admin: 06/07/23 07:48 Dose: 25 mg Levothyroxine Sodium (Levothyroxine Sodium 100 Mcg Tablet) 100 mcg PO DAILY@0600 [facility] Last Admin: 06/07/23 05:09 Dose: 100 mcg Magnesium Hydroxide (Milk Of Magnesia 30 Ml Oral.Susp) 30 ml PO DAILY PRN PRN Reason: Constipation Multivitamins/Vitamin C (Multivitamin Tablet) 1 tab PO DAILY [facility] Last Admin: 06/07/23 07:49 Dose: 1 tab Nicotine (Nicotine 21 Mg Patch.Td24) 21 mg TRANSDERMA DAILY [facility] Last Admin: 06/07/23 07:49 Dose: 21 mg Pt Own(Anoro Ellipta (1 Inhalation)) 1 inhalation INHALE RDAILY [facility] Last Admin: 06/07/23 09:14 Dose: 1 inhalation Oxcarbazepine (Oxcarbazepine 300 Mg Tablet) 300 mg PO BEDTIME [facility] Last Admin: 06/06/23 20:04 Dose: 300 mg Oxycodone HCl (Oxycodone Hcl Immed Release 5 Mg Tablet) 5 mg PO Q8H PRN PRN Reason: severe hip pain Last Admin: 06/07/23 13:05 Dose: 5 mg Pregabalin (Pregabalin 100 Mg Capsule) 100 mg PO BID [facility] Last Admin: 06/07/23 07:48 Dose: 100 mg Quetiapine Fumarate (Quetiapine Fumarate 100 Mg Tablet) 100 mg PO TID [facility] Last Admin: 06/07/23 14:55 Dose: 100 mg Trazodone HCl (Trazodone Hcl 50 Mg Tablet) 50 mg PO BEDTIME MRX1 PRN PRN Reason: Insomnia Last Admin: 06/05/23 22:37 Dose: 50 mg Vitamin D (Cholecalciferol (Vitamin D3) 25 Mcg Tablet) 50 mcg PO DAILY [facility] Last Admin: 06/07/23 07:48 Dose: 50 mcg Zolpidem Tartrate (Zolpidem Tartrate 5 Mg Tablet) 10 mg PO BEDTIME PRN PRN Reason: Insomnia Last Admin: 06/05/23 19:38 Dose: 10 mg Allergies Allergies Allergy/AdvReac Type Severity Reaction Status Date / Time Penicillins [PENICILLINS] Allergy Unknown UNKNOWN Verified 12/04/20 09:04 tomato AdvReac Severe Swelling Verified 06/03/23 03:09 Erythromycin Allergy Unknown Unknown Uncoded 12/04/20 09:04 Assessment & Plan Assessment & Plan (1) Bipolar disorder, now depressed: Status: Acute Code(s): F31.30 - Bipolar disorder, current episode depressed, mild or moderate severity, unspecified (2) Cocaine use disorder: Status: Acute Code(s): F14.10 - Cocaine abuse, uncomplicated Plan 58 yo female, history of bipolar disorder and polysubstance use, presents in transfer from [place] for SI in the context of stopping medications and homelessness along with medical issues. Plan: Resume previous regime which pt reports was effective Oxycodone 5 mg q 12 hours-leg pain from [place] Collateral contact Diagnostics as needed Aftercare planning. 06/05/23 Continue current plan of care Encourage milieu participation and communication 06/06/23 ensure plus ordered with meals continue tx plan 06/07/23 continue tx plan Reason for continued inpatient stay Substantial Risk for: harm to self, inability to function and rapid decompensation Time Spent With Patient Time: Total time managing care of this patient today ____ minutes.
[2023-06-07] MEDS: Zolpidem Tartrate 5 MG TABLET 10 MG PO (19:28)
[2023-06-07] MEDS: OXcarbazepine 300 MG TABLET PO (19:28)
[2023-06-08] MEDS: Albuterol Sulfate 90 MCG 8 GM INHALER 2 PUFF INHALE (01:11)
[2023-06-08] MEDS: hydrOXYzine HCL 25 MG TABLET PO ×2 (01:14→13:07)
[2023-06-08] MEDS: traZODone HCL 50 MG TABLET PO ×2 (01:14→20:59)
[2023-06-08] MEDS: ALPRAZolam 0.5 MG TABLET 1 MG PO ×4 (02:00→20:58)
[2023-06-08] MEDS: oxyCODONE HCl Immed Release 5 MG TABLET PO ×2 (04:43→16:00)
[2023-06-08 06:00] VITALS: BP 111/53; PULSE 93; RESP 18; TEMP 36.2; O2SAT 94
[2023-06-08] MEDS: Levothyroxine Sodium 100 MCG TABLET PO (06:03)
[2023-06-08] MEDS: Nicotine 21 MG PATCH.TD24 TRANSDERMA (09:07)
[2023-06-08] MEDS: Multivitamin TABLET 1 TAB PO (09:08)
[2023-06-08] MEDS: Cholecalciferol (Vitamin D3) 25 MCG TABLET 50 MCG PO (09:08)
[2023-06-08] MEDS: busPIRone HCl 10 MG TABLET PO ×3 (09:08→20:57)
[2023-06-08] MEDS: Pregabalin 100 MG CAPSULE PO ×2 (09:08→20:59)
[2023-06-08] MEDS: ARIPiprazole 10 MG TABLET PO (09:09)
[2023-06-08] MEDS: Atorvastatin Calcium 10 MG TABLET PO (09:09)
--- NOTE | 2023-06-08 14:22 | P.PNPSI_ITS ---
Subjective Subjective Date of Service: 06/08/23 Reason For Visit: Bipolar Depression, Cocaine Use Disorder Subjective Notes: Conditional Voluntary Healthcare Proxy: No Guardianship: No Medical Problems Affecting Mental Status: No Interim History: Reports insomnia-seeking Xanax increase along with oxycodone. Oxycodone decrease to bid today. Will increase Seroquel to assist with sleep. Team report pt to be tearful, somatic, not caring for ADL's. Reports depression/anxiety 12/03. Focused on getting housing. Has a meeting at 3pm today to discuss options. Arranged for daughter to bring [employer] supplement delivery to the hospital today. Continues to report leg pain. Medication Compliance: Yes Side effects from medications: No Attending Groups: No Review of Systems Acute medical concerns: No Medical Review of Systems: unchanged Review of Systems Review of Systems Negative except HPI/interval history. Musculoskeletal: Reports abnormal gait, Reports back pain and Reports myalgias Reports abnormal gait Mental Status Exam Mental Status Exam Patient Appearance: Appropriate Patient Orientation: Person, Place, Time and Situation Level of Consciousness: Alert Patient Behavior: Talkative, Good Eye Contact and Crying Mood Description: Depressed and Apprehensive Affect Description: Flat and Apprehensive Patient Cognition Impaired: No Ability to Follow Directions: Good Speech Pattern: Spontaneous Speech Memory Description: Episodic Impaired Hallucinations: None Delusions: Not Present Thought Process: Rumination Thought Content: positive for Perseveration Depressive Symptoms: Increased Anxiety, Difficulty Sleeping, Increased Fatigue and Loss of Energy Judgement: Fair Diagnostics Vital Signs (24Hr): Vital Signs - 24 hr 06/07/23 17:05 06/08/23 06:00 Temperature 98.6 F 97.1 F Pulse Rate 105 H 93 Respiratory Rate 16 18 Blood Pressure 119/58 L 111/53 L Pulse Oximetry 94 94 Oxygen Delivery Method Room Air Room Air BMI result Body Mass Index 28.4 Labs 06/03/23 08:03 Medications Medications Current Medications Acetaminophen (Acetaminophen 325 Mg Tablet) 650 mg PO Q6H PRN PRN Reason: Headache/Pain Mild Scale (1-3) Last Admin: 06/07/23 00:47 Dose: 650 mg Al Hydroxide/Mg Hydroxide (Magnesium Hydrox/Alum Hydrox 30 Ml Oral.Susp) 30 ml PO Q6H PRN PRN Reason: Heartburn/Nausea Last Admin: 06/04/23 20:15 Dose: 30 ml Albuterol Sulfate (Albuterol Sulfate 90 Mcg 8 Gm Inhaler) 2 puff INHALE Q6H PRN PRN Reason: Shortness of Breath/Wheezing Last Admin: 06/08/23 01:11 Dose: 2 puff Alprazolam (Alprazolam 0.5 Mg Tablet) 1 mg PO TID PRN PRN Reason: Anxiety Last Admin: 06/08/23 09:42 Dose: 1 mg Aripiprazole (Aripiprazole 10 Mg Tablet) 10 mg PO DAILY [facility] Last Admin: 06/08/23 09:09 Dose: 10 mg Atorvastatin Calcium (Atorvastatin Calcium 10 Mg Tablet) 10 mg PO DAILY [facility] Last Admin: 06/08/23 09:09 Dose: 10 mg Buspirone HCl (Buspirone Hcl 10 Mg Tablet) 10 mg PO TID [facility] Last Admin: 06/08/23 09:08 Dose: 10 mg Hydroxyzine HCl (Hydroxyzine Hcl 25 Mg Tablet) 25 mg PO Q6H PRN PRN Reason: Anxiety Last Admin: 06/08/23 13:07 Dose: 25 mg Levothyroxine Sodium (Levothyroxine Sodium 100 Mcg Tablet) 100 mcg PO DAILY@0600 [facility] Last Admin: 06/08/23 06:03 Dose: 100 mcg Magnesium Hydroxide (Milk Of Magnesia 30 Ml Oral.Susp) 30 ml PO DAILY PRN PRN Reason: Constipation Multivitamins/Vitamin C (Multivitamin Tablet) 1 tab PO DAILY [facility] Last Admin: 06/08/23 09:08 Dose: 1 tab Nicotine (Nicotine 21 Mg Patch.Td24) 21 mg TRANSDERMA DAILY [facility] Last Admin: 06/08/23 09:07 Dose: 21 mg Pt Own(Anoro Ellipta (1 Inhalation)) 1 inhalation INHALE RDAILY [facility] Last Admin: 06/08/23 09:13 Dose: 1 inhalation Oxcarbazepine (Oxcarbazepine 300 Mg Tablet) 300 mg PO BEDTIME [facility] Last Admin: 06/07/23 19:28 Dose: 300 mg Oxycodone HCl (Oxycodone Hcl Immed Release 5 Mg Tablet) 5 mg PO Q12H PRN PRN Reason: severe hip pain Pregabalin (Pregabalin 100 Mg Capsule) 100 mg PO BID [facility] Last Admin: 06/08/23 09:08 Dose: 100 mg Quetiapine Fumarate (Quetiapine Fumarate 100 Mg Tablet) 100 mg PO TID [facility] Last Admin: 06/08/23 09:09 Dose: Not Given Trazodone HCl (Trazodone Hcl 50 Mg Tablet) 50 mg PO BEDTIME MRX1 PRN PRN Reason: Insomnia Last Admin: 06/08/23 01:14 Dose: 50 mg Vitamin D (Cholecalciferol (Vitamin D3) 25 Mcg Tablet) 50 mcg PO DAILY [facility] Last Admin: 06/08/23 09:08 Dose: 50 mcg Allergies Allergies Allergy/AdvReac Type Severity Reaction Status Date / Time Penicillins [PENICILLINS] Allergy Unknown UNKNOWN Verified 12/04/20 09:04 tomato AdvReac Severe Swelling Verified 06/03/23 03:09 Erythromycin Allergy Unknown Unknown Uncoded 12/04/20 09:04 Assessment & Plan Assessment & Plan (1) Bipolar disorder, now depressed: Status: Acute Code(s): F31.30 - Bipolar disorder, current episode depressed, mild or moderate severity, unspecified (2) Cocaine use disorder: Status: Acute Code(s): F14.10 - Cocaine abuse, uncomplicated Plan 58 yo female, history of bipolar disorder and polysubstance use, presents in transfer from [place] for in the context of stopping medications and homelessness along with medical issues. Plan: Resume previous regime which pt reports was effective Oxycodone 5 mg q 12 hours-leg pain from [place] Collateral contact Diagnostics as needed Aftercare planning. 06/05/23 Continue current plan of care Encourage milieu participation and communication 06/06/23 ensure plus ordered with meals continue tx plan 06/07/23 continue tx plan 06/08/23 Decrease oxycodone to bid prn Change Seroquel to 100 mg bid and 200 mg hs to assist with sleep. Patient educated on: medication risk/benefits and therapeutic strategies Informed Consent: understands Reason for continued inpatient stay Substantial Risk for: rapid decompensation Time Spent With Patient Time: Total time managing care of this patient today ____ minutes.
[2023-06-08] MEDS: QUEtiapine Fumarate 100 MG TABLET PO ×2 (14:49→20:57)
[2023-06-08] MEDS: Acetaminophen 325 MG TABLET 650 MG PO ×2 (16:56→23:57)
[2023-06-08 18:00] VITALS: BP 110/64; PULSE 100; TEMP 36.2; O2SAT 95
[2023-06-08] MEDS: QUEtiapine Fumarate 200 MG TABLET PO (20:57)
[2023-06-08] MEDS: OXcarbazepine 300 MG TABLET PO (20:59)
[2023-06-08] MEDS: Zolpidem Tartrate 5 MG TABLET 10 MG PO (21:00)
[2023-06-09] MEDS: Levothyroxine Sodium 100 MCG TABLET PO (05:36)
[2023-06-09] MEDS: oxyCODONE HCl Immed Release 5 MG TABLET PO (06:57)
[2023-06-09 08:10] VITALS: BP 121/79; PULSE 87; RESP 18; TEMP 36.6; O2SAT 95
[2023-06-09] MEDS: busPIRone HCl 10 MG TABLET PO ×3 (08:25→19:15)
[2023-06-09] MEDS: Nicotine 21 MG PATCH.TD24 TRANSDERMA (08:25)
[2023-06-09] MEDS: Atorvastatin Calcium 10 MG TABLET PO (08:26)
[2023-06-09] MEDS: ARIPiprazole 10 MG TABLET PO (08:26)
[2023-06-09] MEDS: Pregabalin 100 MG CAPSULE PO ×2 (08:26→19:14)
[2023-06-09] MEDS: Multivitamin TABLET 1 TAB PO (08:27)
[2023-06-09] MEDS: Cholecalciferol (Vitamin D3) 25 MCG TABLET 50 MCG PO (08:27)
[2023-06-09] MEDS: QUEtiapine Fumarate 100 MG TABLET PO (08:27)
[2023-06-09] MEDS: ALPRAZolam 0.5 MG TABLET 1 MG PO ×3 (08:50→21:23)
--- NOTE | 2023-06-09 15:14 | HO.PSYCHPN ---
Subjective Subjective Date of Service: 06/09/23 Reason For Visit: Bipolar Depression, Cocaine Use Disorder Subjective Notes: Conditional Voluntary Healthcare Proxy: No Guardianship: No Medical Problems Affecting Mental Status: No Interim History: Team report confusion and gait unsteadiness. Memory is poor. Oxycodone discontinued as a result. Pt reports hip and back pain-recent lyrica increase discussed with pt. Discussed meeting 06/08 with [facility], I don't know, they don't have an apartment for me . Continues to refuse Combivent. It is your job to find me an apartment-get to it. Medication Compliance: Yes Side effects from medications: No Attending Groups: No Review of Systems Acute medical concerns: No Medical Review of Systems: unchanged Review of Systems Review of Systems Negative except HPI/interval history. Musculoskeletal: Reports abnormal gait, Reports back pain and Reports myalgias Reports abnormal gait Mental Status Exam Mental Status Exam Patient Appearance: Appropriate Patient Orientation: Person, Place, Time and Situation Level of Consciousness: Alert Patient Behavior: Talkative, Good Eye Contact and Crying Mood Description: Depressed and Apprehensive Affect Description: Flat and Apprehensive Patient Cognition Impaired: No Ability to Follow Directions: Good Speech Pattern: Spontaneous Speech Memory Description: Episodic Impaired Hallucinations: None Delusions: Not Present Thought Process: Rumination Thought Content: positive for Perseveration Depressive Symptoms: Increased Anxiety, Difficulty Sleeping, Increased Fatigue and Loss of Energy Judgement: Fair Diagnostics Vital Signs (24Hr): Vital Signs - 24 hr 06/08/23 18:00 06/09/23 08:10 Temperature 97.2 F 97.8 F Pulse Rate 100 87 Respiratory Rate 18 Blood Pressure 110/64 121/79 Pulse Oximetry 95 95 Oxygen Delivery Method Room Air Room Air BMI result Body Mass Index 28.4 Labs 06/03/23 08:03 Medications Medications Current Medications Acetaminophen (Acetaminophen 325 Mg Tablet) 650 mg PO Q6H PRN PRN Reason: Headache/Pain Mild Scale (1-3) Last Admin: 06/08/23 23:57 Dose: 650 mg Al Hydroxide/Mg Hydroxide (Magnesium Hydrox/Alum Hydrox 30 Ml Oral.Susp) 30 ml PO Q6H PRN PRN Reason: Heartburn/Nausea Last Admin: 06/04/23 20:15 Dose: 30 ml Albuterol Sulfate (Albuterol Sulfate 90 Mcg 8 Gm Inhaler) 2 puff INHALE Q6H PRN PRN Reason: Shortness of Breath/Wheezing Last Admin: 06/08/23 01:11 Dose: 2 puff Alprazolam (Alprazolam 0.5 Mg Tablet) 1 mg PO TID PRN PRN Reason: Anxiety Last Admin: 06/09/23 14:48 Dose: 1 mg Aripiprazole (Aripiprazole 10 Mg Tablet) 10 mg PO DAILY [facility] Last Admin: 06/09/23 08:26 Dose: 10 mg Atorvastatin Calcium (Atorvastatin Calcium 10 Mg Tablet) 10 mg PO DAILY [facility] Last Admin: 06/09/23 08:26 Dose: 10 mg Buspirone HCl (Buspirone Hcl 10 Mg Tablet) 10 mg PO TID [facility] Last Admin: 06/09/23 14:11 Dose: 10 mg Hydroxyzine HCl (Hydroxyzine Hcl 25 Mg Tablet) 25 mg PO Q6H PRN PRN Reason: Anxiety Last Admin: 06/08/23 13:07 Dose: 25 mg Levothyroxine Sodium (Levothyroxine Sodium 100 Mcg Tablet) 100 mcg PO DAILY@0600 [facility] Last Admin: 06/09/23 05:36 Dose: 100 mcg Magnesium Hydroxide (Milk Of Magnesia 30 Ml Oral.Susp) 30 ml PO DAILY PRN PRN Reason: Constipation Multivitamins/Vitamin C (Multivitamin Tablet) 1 tab PO DAILY [facility] Last Admin: 06/09/23 08:27 Dose: 1 tab Nicotine (Nicotine 21 Mg Patch.Td24) 21 mg TRANSDERMA DAILY [facility] Last Admin: 06/09/23 08:25 Dose: 21 mg Pt Own(Anoro Ellipta (1 Inhalation)) 1 inhalation INHALE RDAILY [facility] Last Admin: 06/09/23 08:28 Dose: 1 inhalation Oxcarbazepine (Oxcarbazepine 300 Mg Tablet) 300 mg PO BEDTIME [facility] Last Admin: 06/08/23 20:59 Dose: 300 mg Pregabalin (Pregabalin 100 Mg Capsule) 100 mg PO BID [facility] Last Admin: 06/09/23 08:26 Dose: 100 mg Quetiapine Fumarate (Quetiapine Fumarate 100 Mg Tablet) 100 mg PO BID [facility] Last Admin: 06/09/23 08:27 Dose: 100 mg Quetiapine Fumarate (Quetiapine Fumarate 200 Mg Tablet) 200 mg PO BEDTIME [facility] Last Admin: 06/08/23 20:57 Dose: 200 mg Trazodone HCl (Trazodone Hcl 50 Mg Tablet) 50 mg PO BEDTIME MRX1 PRN PRN Reason: Insomnia Last Admin: 06/08/23 20:59 Dose: 50 mg Vitamin D (Cholecalciferol (Vitamin D3) 25 Mcg Tablet) 50 mcg PO DAILY [facility] Last Admin: 06/09/23 08:27 Dose: 50 mcg Zolpidem Tartrate (Zolpidem Tartrate 5 Mg Tablet) 10 mg PO BEDTIME PRN PRN Reason: Insomnia Last Admin: 06/08/23 21:00 Dose: 10 mg Allergies Allergies Allergy/AdvReac Type Severity Reaction Status Date / Time Penicillins [PENICILLINS] Allergy Unknown UNKNOWN Verified 12/04/20 09:04 tomato AdvReac Severe Swelling Verified 06/03/23 03:09 Erythromycin Allergy Unknown Unknown Uncoded 12/04/20 09:04 Assessment & Plan Assessment & Plan (1) Bipolar disorder, now depressed: Status: Acute Code(s): F31.30 - Bipolar disorder, current episode depressed, mild or moderate severity, unspecified (2) Cocaine use disorder: Status: Acute Code(s): F14.10 - Cocaine abuse, uncomplicated Plan 58 yo female, history of bipolar disorder and polysubstance use, presents in transfer from [place] for [facility] in the context of stopping medications and homelessness along with medical issues. Plan: Resume previous regime which pt reports was effective Oxycodone 5 mg q 12 hours-leg pain from MS Collateral contact Diagnostics as needed Aftercare planning. 06/05/23 Continue current plan of care Encourage milieu participation and communication 06/06/23 ensure plus ordered with meals continue tx plan 06/07/23 continue tx plan 06/08/23 Decrease oxycodone to bid prn Change Seroquel to 100 mg bid and 200 mg hs to assist with sleep. 06/09/23 Discontinue oxycodone Change Seroquel to 50 mg bid and 200 mg hs Patient educated on: medication risk/benefits, therapeutic strategies and medical condition Informed Consent: further education needed Reason for continued inpatient stay Substantial Risk for: rapid decompensation Time Spent With Patient Time: Total time managing care of this patient today ____ minutes.
[2023-06-09 17:35] VITALS: BP 121/69; PULSE 107; RESP 16; TEMP 36.6; O2SAT 95
[2023-06-09] MEDS: Acetaminophen 325 MG TABLET 650 MG PO (18:18)
[2023-06-09] MEDS: hydrOXYzine HCL 25 MG TABLET PO (18:18)
[2023-06-09] MEDS: QUEtiapine Fumarate 50 MG TABLET PO (19:14)
[2023-06-09] MEDS: OXcarbazepine 150 MG TABLET PO (19:15)
[2023-06-09] MEDS: Zolpidem Tartrate 5 MG TABLET 10 MG PO (19:15)
[2023-06-09] MEDS: QUEtiapine Fumarate 200 MG TABLET PO (19:15)
[2023-06-10] MEDS: hydrOXYzine HCL 25 MG TABLET PO ×2 (03:49→18:01)
[2023-06-10] MEDS: Levothyroxine Sodium 100 MCG TABLET PO (06:14)
[2023-06-10 07:40] VITALS: BP 174/72; PULSE 107; RESP 16; TEMP 37; O2SAT 95
[2023-06-10] MEDS: Nicotine 21 MG PATCH.TD24 TRANSDERMA (08:25)
[2023-06-10] MEDS: Multivitamin TABLET 1 TAB PO (08:26)
[2023-06-10] MEDS: Cholecalciferol (Vitamin D3) 25 MCG TABLET 50 MCG PO (08:26)
[2023-06-10] MEDS: ARIPiprazole 10 MG TABLET PO (08:26)
[2023-06-10] MEDS: Atorvastatin Calcium 10 MG TABLET PO (08:26)
[2023-06-10] MEDS: Pregabalin 100 MG CAPSULE PO ×2 (08:26→20:04)
[2023-06-10] MEDS: busPIRone HCl 10 MG TABLET PO ×3 (08:26→20:05)
[2023-06-10] MEDS: QUEtiapine Fumarate 50 MG TABLET PO ×2 (08:26→20:05)
[2023-06-10] MEDS: ALPRAZolam 0.5 MG TABLET 1 MG PO ×2 (08:31→16:01)
[2023-06-10 09:30] LABS: Thyroid Stimulating Hormone 2.27 uIU/mL (0.32-4.0)
[2023-06-10] MEDS: oxyCODONE HCl Immed Release 5 MG TABLET PO (13:51)
--- NOTE | 2023-06-10 14:40 | P.PNPSI_ITS ---
Subjective Subjective Date of Service: 06/10/23 Reason For Visit: Bipolar Depression, Cocaine Use Disorder Subjective Notes: Conditional Voluntary Healthcare Proxy: No Guardianship: No Medical Problems Affecting Mental Status: No Interim History: Pt discussed pain mgt today. Her pattern is to consistently present to ER's to request opiates. Discussed a return to bid oxycodone 5 mg to manage sx and referral for MS diaz upon discharge which she agrees. She is aware that we will not prescribe pain meds on discharge and agrees to this plan. Waiting to meet with [place] team regarding potential housing resources. Declines permission to call [facility], Dr. Hudson, PCP to discuss pt's pain plan. She reports they do not get along Will order xrays. Medication Compliance: Yes Side effects from medications: No Attending Groups: No Review of Systems Acute medical concerns: No Medical Review of Systems: unchanged Review of Systems Musculoskeletal: Reports back pain and Reports myalgias Comments: MS, leg pain, left side Mental Status Exam Mental Status Exam Patient Appearance: Appropriate Patient Orientation: Person, Place, Time and Situation Level of Consciousness: Alert Patient Behavior: Talkative, Good Eye Contact and Crying Mood Description: Depressed and Apprehensive Affect Description: Flat and Apprehensive Patient Cognition Impaired: No Ability to Follow Directions: Good Speech Pattern: Spontaneous Speech Memory Description: Episodic Impaired Hallucinations: None Delusions: Not Present Thought Process: Rumination Thought Content: positive for Perseveration Depressive Symptoms: Increased Anxiety, Difficulty Sleeping, Increased Fatigue and Loss of Energy Judgement: Fair Diagnostics Vital Signs (24Hr): Vital Signs - 24 hr 06/09/23 17:35 06/10/23 07:40 Temperature 97.8 F 98.6 F Pulse Rate 107 H 107 H Respiratory Rate 16 16 Blood Pressure 121/69 174/72 H Pulse Oximetry 95 95 Oxygen Delivery Method Room Air Room Air BMI result Body Mass Index 28.4 Labs 06/03/23 08:03 Labs: Laboratory Results - last 48 hr 06/10/23 08:11 TSH 2.27 Medications Medications Current Medications Acetaminophen (Acetaminophen 325 Mg Tablet) 650 mg PO Q6H PRN PRN Reason: Headache/Pain Mild Scale (1-3) Last Admin: 06/09/23 18:18 Dose: 650 mg Al Hydroxide/Mg Hydroxide (Magnesium Hydrox/Alum Hydrox 30 Ml Oral.Susp) 30 ml PO Q6H PRN PRN Reason: Heartburn/Nausea Last Admin: 06/04/23 20:15 Dose: 30 ml Albuterol Sulfate (Albuterol Sulfate 90 Mcg 8 Gm Inhaler) 2 puff INHALE Q6H PRN PRN Reason: Shortness of Breath/Wheezing Last Admin: 06/08/23 01:11 Dose: 2 puff Alprazolam (Alprazolam 0.5 Mg Tablet) 1 mg PO TID PRN PRN Reason: Anxiety Last Admin: 06/10/23 08:31 Dose: 1 mg Aripiprazole (Aripiprazole 10 Mg Tablet) 10 mg PO DAILY [facility] Last Admin: 06/10/23 08:26 Dose: 10 mg Atorvastatin Calcium (Atorvastatin Calcium 10 Mg Tablet) 10 mg PO DAILY [facility] Last Admin: 06/10/23 08:26 Dose: 10 mg Buspirone HCl (Buspirone Hcl 10 Mg Tablet) 10 mg PO TID [facility] Last Admin: 06/10/23 08:26 Dose: 10 mg Hydroxyzine HCl (Hydroxyzine Hcl 25 Mg Tablet) 25 mg PO Q6H PRN PRN Reason: Anxiety Last Admin: 06/10/23 03:49 Dose: 25 mg Levothyroxine Sodium (Levothyroxine Sodium 100 Mcg Tablet) 100 mcg PO DAILY@0600 [facility] Last Admin: 06/10/23 06:14 Dose: 100 mcg Magnesium Hydroxide (Milk Of Magnesia 30 Ml Oral.Susp) 30 ml PO DAILY PRN PRN Reason: Constipation Multivitamins/Vitamin C (Multivitamin Tablet) 1 tab PO DAILY [facility] Last Admin: 06/10/23 08:26 Dose: 1 tab Nicotine (Nicotine 21 Mg Patch.Td24) 21 mg TRANSDERMA DAILY [facility] Last Admin: 06/10/23 08:25 Dose: 21 mg Pt Own(Anoro Ellipta (1 Inhalation)) 1 inhalation INHALE RDAILY [facility] Last Admin: 06/10/23 08:32 Dose: 1 inhalation Oxcarbazepine (Oxcarbazepine 150 Mg Tablet) 150 mg PO BEDTIME [facility] Last Admin: 06/09/23 19:15 Dose: 150 mg Oxycodone HCl (Oxycodone Hcl Immed Release 5 Mg Tablet) 5 mg PO Q12H PRN PRN Reason: Pain, Severe (Pain Scale 7-10) Last Admin: 06/10/23 13:51 Dose: 5 mg Pregabalin (Pregabalin 100 Mg Capsule) 100 mg PO BID [facility] Last Admin: 06/10/23 08:26 Dose: 100 mg Quetiapine Fumarate (Quetiapine Fumarate 200 Mg Tablet) 200 mg PO BEDTIME [facility] Last Admin: 06/09/23 19:15 Dose: 200 mg Quetiapine Fumarate (Quetiapine Fumarate 50 Mg Tablet) 50 mg PO BID [facility] Last Admin: 06/10/23 08:26 Dose: 50 mg Trazodone HCl (Trazodone Hcl 50 Mg Tablet) 50 mg PO BEDTIME MRX1 PRN PRN Reason: Insomnia Last Admin: 06/08/23 20:59 Dose: 50 mg Vitamin D (Cholecalciferol (Vitamin D3) 25 Mcg Tablet) 50 mcg PO DAILY [facility] Last Admin: 06/10/23 08:26 Dose: 50 mcg Zolpidem Tartrate (Zolpidem Tartrate 5 Mg Tablet) 10 mg PO BEDTIME PRN PRN Reason: Insomnia Last Admin: 06/09/23 19:15 Dose: 10 mg Allergies Allergies Allergy/AdvReac Type Severity Reaction Status Date / Time Penicillins [PENICILLINS] Allergy Unknown UNKNOWN Verified 12/04/20 09:04 tomato AdvReac Severe Swelling Verified 06/03/23 03:09 Erythromycin Allergy Unknown Unknown Uncoded 12/04/20 09:04 Assessment & Plan Assessment & Plan (1) Bipolar disorder, now depressed: Status: Acute Code(s): F31.30 - Bipolar disorder, current episode depressed, mild or moderate severity, unspecified (2) Cocaine use disorder: Status: Acute Code(s): F14.10 - Cocaine abuse, uncomplicated Plan 58 yo female, history of bipolar disorder and polysubstance use, presents in transfer from [place] for in the context of stopping medications and homelessness along with medical issues. Plan: Resume previous regime which pt reports was effective Oxycodone 5 mg q 12 hours-leg pain from MS Collateral contact Diagnostics as needed Aftercare planning. 06/05/23 Continue current plan of care Encourage milieu participation and communication 06/06/23 ensure plus ordered with meals continue tx plan 06/07/23 continue tx plan 06/08/23 Decrease oxycodone to bid prn Change Seroquel to 100 mg bid and 200 mg hs to assist with sleep. 06/09/23 Discontinue oxycodone Change Seroquel to 50 mg bid and 200 mg hs 06/10/23 Oxycodone 5 mg q 12 hours prn X rays- right hip, femur, tib/fib- pain, decrease in mobility Informed Consent: understands Reason for continued inpatient stay Substantial Risk for: rapid decompensation Time Spent With Patient Time: Total time managing care of this patient today ____ minutes.
[2023-06-10] MEDS: Albuterol Sulfate 90 MCG 8 GM INHALER 2 PUFF INHALE (16:03)
[2023-06-10 18:05] VITALS: BP 113/64; PULSE 99; RESP 16; TEMP 36.4; O2SAT 97
[2023-06-10] MEDS: Acetaminophen 325 MG TABLET 650 MG PO (19:20)
[2023-06-10] MEDS: QUEtiapine Fumarate 200 MG TABLET PO (20:03)
[2023-06-10] MEDS: Zolpidem Tartrate 5 MG TABLET 10 MG PO (20:04)
[2023-06-10] MEDS: OXcarbazepine 150 MG TABLET PO (20:04)
[2023-06-10] MEDS: traZODone HCL 50 MG TABLET PO (20:05)
[2023-06-11] MEDS: oxyCODONE HCl Immed Release 5 MG TABLET PO ×3 (02:03→20:01)
[2023-06-11] MEDS: traZODone HCL 50 MG TABLET PO (02:04)
[2023-06-11] MEDS: hydrOXYzine HCL 25 MG TABLET PO ×3 (02:04→14:03)
[2023-06-11] MEDS: Levothyroxine Sodium 100 MCG TABLET PO (06:27)
[2023-06-11 07:00] VITALS: BMI 29.7
[2023-06-11] MEDS: ALPRAZolam 0.5 MG TABLET 1 MG PO ×3 (07:07→20:00)
[2023-06-11 08:24] VITALS: BP 131/77; PULSE 102; TEMP 36.7; O2SAT 96
[2023-06-11] MEDS: Nicotine 21 MG PATCH.TD24 TRANSDERMA (09:19)
[2023-06-11] MEDS: Multivitamin TABLET 1 TAB PO (09:20)
[2023-06-11] MEDS: busPIRone HCl 10 MG TABLET PO ×3 (09:20→20:01)
[2023-06-11] MEDS: Atorvastatin Calcium 10 MG TABLET PO (09:20)
[2023-06-11] MEDS: ARIPiprazole 10 MG TABLET PO (09:20)
[2023-06-11] MEDS: Cholecalciferol (Vitamin D3) 25 MCG TABLET 50 MCG PO (09:20)
[2023-06-11] MEDS: Pregabalin 100 MG CAPSULE PO ×2 (09:20→20:00)
[2023-06-11] MEDS: QUEtiapine Fumarate 50 MG TABLET PO ×2 (09:20→20:01)
[2023-06-11] MEDS: Acetaminophen 325 MG TABLET 650 MG PO (12:01)
--- NOTE | 2023-06-11 14:36 | P.PNPSI_ITS ---
Subjective Subjective Date of Service: 06/11/23 Reason For Visit: Bipolar Depression, Cocaine Use Disorder Subjective Notes: Conditional Voluntary Healthcare Proxy: No Guardianship: No Medical Problems Affecting Mental Status: No Interim History: Discussed OP referrals. Pt willing to meet with [facility] to establish a stable plan for MS sx mgt. Reviewed x-ray results-L Hip Arthritis, LS Degenerative Changes. Discussed her concerns about housing and being homeless and medically impaired. Medication Compliance: Yes Side effects from medications: No Attending Groups: No Review of Systems Acute medical concerns: No Medical Review of Systems: unchanged Review of Systems Musculoskeletal: Reports back pain and Reports myalgias Comments: MS, leg pain, left side Mental Status Exam Mental Status Exam Patient Appearance: Appropriate Patient Orientation: Person, Place, Time and Situation Level of Consciousness: Alert Patient Behavior: Talkative, Good Eye Contact and Crying Mood Description: Depressed and Apprehensive Affect Description: Flat and Apprehensive Patient Cognition Impaired: No Ability to Follow Directions: Good Speech Pattern: Spontaneous Speech Memory Description: Episodic Impaired Hallucinations: None Delusions: Not Present Thought Process: Rumination Thought Content: positive for Perseveration Depressive Symptoms: Increased Anxiety, Difficulty Sleeping, Increased Fatigue and Loss of Energy Judgement: Fair Diagnostics Vital Signs (24Hr): Vital Signs - 24 hr 06/10/23 18:05 06/11/23 08:24 Temperature 97.6 F 98.0 F Pulse Rate 99 102 H Respiratory Rate 16 Blood Pressure 113/64 131/77 Pulse Oximetry 97 96 Oxygen Delivery Method Room Air Room Air BMI result Body Mass Index 28.4 Labs 06/03/23 08:03 Labs: Laboratory Results - last 48 hr 06/10/23 08:11 TSH 2.27 Imaging Radiology Impressions: ITS Impressions Femur X-Ray 06/10/23 19:40 IMPRESSION: No fracture or dislocation. Mild left hip arthritis. Degenerative changes of the lumbar spine. Hip/Pelvis X-Ray 06/10/23 19:40 IMPRESSION: No fracture or dislocation. Mild left hip arthritis. Degenerative changes of the lumbar spine. Tibia/Fibula X-Ray 06/10/23 19:40 IMPRESSION: Normal left tibia and fibula. Medications Medications Current Medications Acetaminophen (Acetaminophen 325 Mg Tablet) 650 mg PO Q6H PRN PRN Reason: Headache/Pain Mild Scale (1-3) Last Admin: 06/11/23 12:01 Dose: 650 mg Al Hydroxide/Mg Hydroxide (Magnesium Hydrox/Alum Hydrox 30 Ml Oral.Susp) 30 ml PO Q6H PRN PRN Reason: Heartburn/Nausea Last Admin: 06/04/23 20:15 Dose: 30 ml Albuterol Sulfate (Albuterol Sulfate 90 Mcg 8 Gm Inhaler) 2 puff INHALE Q6H PRN PRN Reason: Shortness of Breath/Wheezing Last Admin: 06/10/23 16:03 Dose: 2 puff Alprazolam (Alprazolam 0.5 Mg Tablet) 1 mg PO TID PRN PRN Reason: Anxiety Last Admin: 06/11/23 14:03 Dose: 1 mg Aripiprazole (Aripiprazole 10 Mg Tablet) 10 mg PO DAILY [facility] Last Admin: 06/11/23 09:20 Dose: 10 mg Atorvastatin Calcium (Atorvastatin Calcium 10 Mg Tablet) 10 mg PO DAILY [facility] Last Admin: 06/11/23 09:20 Dose: 10 mg Buspirone HCl (Buspirone Hcl 10 Mg Tablet) 10 mg PO TID [facility] Last Admin: 06/11/23 14:03 Dose: 10 mg Hydroxyzine HCl (Hydroxyzine Hcl 25 Mg Tablet) 25 mg PO Q6H PRN PRN Reason: Anxiety Last Admin: 06/11/23 14:03 Dose: 25 mg Levothyroxine Sodium (Levothyroxine Sodium 100 Mcg Tablet) 100 mcg PO DAILY@0600 [facility] Last Admin: 06/11/23 06:27 Dose: 100 mcg Magnesium Hydroxide (Milk Of Magnesia 30 Ml Oral.Susp) 30 ml PO DAILY PRN PRN Reason: Constipation Multivitamins/Vitamin C (Multivitamin Tablet) 1 tab PO DAILY [facility] Last Admin: 06/11/23 09:20 Dose: 1 tab Nicotine (Nicotine 21 Mg Patch.Td24) 21 mg TRANSDERMA DAILY [facility] Last Admin: 06/11/23 09:19 Dose: 21 mg Pt Own(Anoro Ellipta (1 Inhalation)) 1 inhalation INHALE RDAILY [facility] Last Admin: 06/11/23 09:20 Dose: Not Given Oxcarbazepine (Oxcarbazepine 150 Mg Tablet) 150 mg PO BEDTIME [facility] Last Admin: 06/10/23 20:04 Dose: 150 mg Oxycodone HCl (Oxycodone Hcl Immed Release 5 Mg Tablet) 5 mg PO Q12H PRN PRN Reason: Pain, Severe (Pain Scale 7-10) Last Admin: 06/11/23 14:03 Dose: 5 mg Pregabalin (Pregabalin 100 Mg Capsule) 100 mg PO BID [facility] Last Admin: 06/11/23 09:20 Dose: 100 mg Quetiapine Fumarate (Quetiapine Fumarate 200 Mg Tablet) 200 mg PO BEDTIME [facility] Last Admin: 06/10/23 20:03 Dose: 200 mg Quetiapine Fumarate (Quetiapine Fumarate 50 Mg Tablet) 50 mg PO BID [facility] Last Admin: 06/11/23 09:20 Dose: 50 mg Trazodone HCl (Trazodone Hcl 50 Mg Tablet) 50 mg PO BEDTIME MRX1 PRN PRN Reason: Insomnia Last Admin: 06/11/23 02:04 Dose: 50 mg Vitamin D (Cholecalciferol (Vitamin D3) 25 Mcg Tablet) 50 mcg PO DAILY [facility] Last Admin: 06/11/23 09:20 Dose: 50 mcg Zolpidem Tartrate (Zolpidem Tartrate 5 Mg Tablet) 10 mg PO BEDTIME PRN PRN Reason: Insomnia Last Admin: 06/10/23 20:04 Dose: 10 mg Allergies Allergies Allergy/AdvReac Type Severity Reaction Status Date / Time Penicillins [PENICILLINS] Allergy Unknown UNKNOWN Verified 12/04/20 09:04 tomato AdvReac Severe Swelling Verified 06/03/23 03:09 Erythromycin Allergy Unknown Unknown Uncoded 12/04/20 09:04 Assessment & Plan Assessment & Plan (1) Bipolar disorder, now depressed: Status: Acute Code(s): F31.30 - Bipolar disorder, current episode depressed, mild or moderate severity, unspecified (2) Cocaine use disorder: Status: Acute Code(s): F14.10 - Cocaine abuse, uncomplicated Plan 58 yo female, history of bipolar disorder and polysubstance use, presents in transfer from [place] for in the context of stopping medications and homelessness along with medical issues. Plan: Resume previous regime which pt reports was effective Oxycodone 5 mg q 12 hours-leg pain from MS Collateral contact Diagnostics as needed Aftercare planning. 06/05/23 Continue current plan of care Encourage milieu participation and communication 06/06/23 ensure plus ordered with meals continue tx plan 06/07/23 continue tx plan 06/08/23 Decrease oxycodone to bid prn Change Seroquel to 100 mg bid and 200 mg hs to assist with sleep. 06/09/23 Discontinue oxycodone Change Seroquel to 50 mg bid and 200 mg hs 06/10/23 Oxycodone 5 mg q 12 hours prn X rays- right hip, femur, tib/fib- pain, decrease in mobility 06/11/23 Review of results of xrays-pt willing to follow up with neurology for MS sx mgt post discharge Patient educated on: medication risk/benefits, substance abuse, therapeutic strategies and medical condition Informed Consent: understands Reason for continued inpatient stay Substantial Risk for: rapid decompensation Time Spent With Patient Time: Total time managing care of this patient today ____ minutes.
[2023-06-11] MEDS: Albuterol Sulfate 90 MCG 8 GM INHALER 2 PUFF INHALE (17:08)
[2023-06-11 17:48] VITALS: BMI 29.7
[2023-06-11 18:00] VITALS: BP 113/70; PULSE 104; RESP 17; TEMP 36.8; O2SAT 95
[2023-06-11] MEDS: QUEtiapine Fumarate 200 MG TABLET PO (20:01)
[2023-06-11] MEDS: OXcarbazepine 150 MG TABLET PO (20:01)
[2023-06-12] MEDS: Levothyroxine Sodium 100 MCG TABLET PO (06:26)
[2023-06-12 08:00] VITALS: BP 110/62; PULSE 98; RESP 16; TEMP 36.4; O2SAT 95
[2023-06-12] MEDS: Nicotine 21 MG PATCH.TD24 TRANSDERMA (08:36)
[2023-06-12] MEDS: ARIPiprazole 10 MG TABLET PO (08:37)
[2023-06-12] MEDS: ALPRAZolam 0.5 MG TABLET 1 MG PO (08:37)
[2023-06-12] MEDS: Multivitamin TABLET 1 TAB PO (08:38)
[2023-06-12] MEDS: hydrOXYzine HCL 25 MG TABLET PO (08:38)
[2023-06-12] MEDS: QUEtiapine Fumarate 50 MG TABLET PO (08:38)
[2023-06-12] MEDS: busPIRone HCl 10 MG TABLET PO (08:38)
[2023-06-12] MEDS: Pregabalin 100 MG CAPSULE PO (08:39)
[2023-06-12] MEDS: oxyCODONE HCl Immed Release 5 MG TABLET PO (08:39)
[2023-06-12] MEDS: Cholecalciferol (Vitamin D3) 25 MCG TABLET 50 MCG PO (08:39)
[2023-06-12] MEDS: Atorvastatin Calcium 10 MG TABLET PO (08:39)
--- NOTE | 2023-06-12 16:09 | P.DS_ITS ---
DS: Providers Provider Date of Service: 06/12/23 Date of admission: 06/02/23 22:49 Date of discharge: 06/12/23 Primary care physician: Unknown Physician Admitting clinician: Annamarie Aguilera Attending physician on admission: Saurav Aquino Consults: 06/03/23 03:26 Consult to Hospitalist Routine Comment: Consulting Provider: Hospitalist Reason For Exam: admit from outside hospital 06/04/23 15:20 Consult to Hospitalist Routine Comment: Reports stepping on a nail 1.5 wks ago, sx increas Consulting Provider: Hospitalist Reason For Exam: MS, reports L leg pain, L sided pain, oxy ineffect Attending physician on discharge: Saurav Aquino Discharging clinician: Annamarie Aguilera DS: Diagnosis Discharge Diagnosis (1) Bipolar disorder, now depressed: Status: Acute (2) Cocaine use disorder: Status: Acute DS: Medications Discharge Medications Home Medications: Home Medications Medication Instructions Recorded Confirmed zolpidem 10 mg tablet 10 mg PO BEDTIME PRN insomnia 06/03/23 06/03/23 Previous Rx's Medication Instructions Recorded alprazolam 1 mg tablet 1 mg PO TID PRN anxiety #21 tabs 06/12/23 aripiprazole 10 mg tablet 10 mg PO DAILY #30 tabs 06/12/23 buspirone 10 mg tablet 10 mg PO TID #90 tabs 06/12/23 cholecalciferol (vitamin D3) 50 50 mcg PO DAILY #30 caps 06/12/23 mcg (2,000 unit) capsule ipratropium 20 mcg-albuterol 100 1 puff inhalation QID #1 inhaler 06/12/23 mcg/actuation mist for inhalation (Combivent Respimat) levothyroxine 100 mcg tablet 100 mcg PO DAILY #30 tabs 06/12/23 multivitamin (Daily-Sadi tablet) 1 tab PO DAILY #30 tabs 06/12/23 nicotine 21 mg/24 hr daily 21 mg transdermal DAILY #30 ea 06/12/23 transdermal patch pregabalin 100 mg capsule (Lyrica) 100 mg PO BID #14 caps 06/12/23 quetiapine 200 mg tablet 200 mg PO BEDTIME #7 tabs 06/12/23 quetiapine 50 mg tablet 50 mg PO BID #14 tabs 06/12/23 rosuvastatin 10 mg tablet 10 mg PO QAM #30 tabs 06/12/23 umeclidinium 62.5 mcg-vilanterol 1 ea inhalation DAILY #1 inhaler 06/12/23 25 mcg/actuation powdr for inhalation (Anoro Ellipta) Mental Status Exam Mental Status Exam Patient Appearance: Appropriate Patient Orientation: Person, Place, Time and Situation Level of Consciousness: Alert Patient Behavior: Talkative and Good Eye Contact Mood Description: Depressed and Apprehensive Affect Description: Flat and Apprehensive Patient Cognition Impaired: No Ability to Follow Directions: Good Speech Pattern: Spontaneous Speech Memory Description: Episodic Impaired Hallucinations: None Delusions: Not Present Thought Process: Rumination Thought Content: positive for Perseveration Depressive Symptoms: Increased Anxiety Judgement: Good Data Data Completed and Pending Completed studies during hospitalization [Text1]: 06/10/23 08:11 TSH 2.27 Imaging Diagnostic Imaging Impressions Femur X-Ray 06/10/23 19:40 IMPRESSION: No fracture or dislocation. Mild left hip arthritis. Degenerative changes of the lumbar spine. Hip/Pelvis X-Ray 06/10/23 19:40 IMPRESSION: No fracture or dislocation. Mild left hip arthritis. Degenerative changes of the lumbar spine. Tibia/Fibula X-Ray 06/10/23 19:40 IMPRESSION: Normal left tibia and fibula. DS: Summary Hospital Course Hospital Course: Admit to adult psychiatry in transfer from [facility] with exacerbation of bipolar disorder, cocaine use disorder. Pt reports she is usually admitted to [facility] and grieves the closing of this unit. Pt reported poor sleep, appetite, SI and medicine noncompliance. She reports homelessness due to allowing others to live in her apartment, sell drugs and non payment of rent. Medication regime was evaluated, initiated with Erma's participation. On the unit, she did exhibit lability of mood and expressed anger verbally, however there were no symptoms of behavioral dyscontrol. She plans follow up with [facility] and is willing to work with [facility] [employer] moving forward in her search for housing. [facility] to [facility]. Time spent discussing smoking cessation with patient: 3 to 10 minutes Status at Discharge Functional status at discharge: independent ambulation Overall status at discharge: patient is back to baseline Time Spent with Patient Time attestation: Total time managing care of this patient today ____ minutes. Time spent: Greater than 30 minutes Discharge Plan Discharge Anticipated Discharge Date/Time: 06/12/23 12:51 Patient Disposition: Skilled Nursing Discharge Diagnosis: Bipolar Disorder, Depressed Cocaine Use Disorder COPD Referrals: [facility] [Other] (Please use the walk in services as needed. ) [facility]t. w Dr Koehler [Other] - 06/24/23 11:30 am (Telehealth) [facility] w Maia Schwarz Counselor [Other] - 3-5 Days [facility] [employer] [employer] [facility] [employer] [Other] - 1 Week Discharge Medications: New multivitamin [Daily-Sadi] Tablet 1 tab PO DAILY Qty: 30 0RF quetiapine 200 mg Tablet 200 mg PO BEDTIME Qty: 7 4RF nicotine 21 mg/24 hr Patch 24 Hour 21 mg transdermal DAILY Qty: 30 0RF pregabalin [Lyrica] 100 mg Capsule 100 mg PO BID Qty: 14 4RF quetiapine 50 mg Tablet 50 mg PO BID Qty: 14 4RF Continued zolpidem 10 mg tablet 10 mg PO BEDTIME PRN (Reason: insomnia) alprazolam 1 mg tablet 1 mg PO TID PRN (Reason: anxiety) Qty: 21 4RF levothyroxine 100 mcg tablet 100 mcg PO DAILY Qty: 30 0RF buspirone 10 mg tablet 10 mg PO TID Qty: 90 0RF rosuvastatin 10 mg tablet 10 mg PO QAM Qty: 30 0RF cholecalciferol (vitamin D3) 50 mcg (2,000 unit) capsule 50 mcg PO DAILY Qty: 30 0RF Anoro Ellipta 62.5-25 mcg/actuation blister with device 1 ea inhalation DAILY Qty: 1 0RF Combivent Respimat 20-100 mcg/actuation mist 1 puff INHALATION QID Qty: 1 0RF aripiprazole 10 mg tablet 10 mg PO DAILY Qty: 30 0RF Discontinued quetiapine 100 mg tablet 100 mg PO TID pregabalin 75 mg capsule 75 mg PO BID Discharge Orders: Discharge Order (Routine); Ordered 06/12/23 Ordered By: Annamarie Aguilera Diet: Advance to usual diet Activity on Discharge: As tolerated Stand Alone Forms: Patient Portal Discharge page, Community Support Care Plan Goals: Mood and Behavioral Stabilization Work on Sobriety Health Concerns: Mood and Behavioral Stabilization Work on Sobriety Plan of Treatment: Attend scheduled appointments Take medications as directed Assessment: Scheduled discharge Discharge Date/Time: 06/12/23 11:58
== END 2023-06-12 11:58 | disposition home or self-care (01) | DRG 753 ==
PROVIDERS: Admitting Provider Psychiatry & Neurology Psychiatry; Visit Provider Clinical Nurse Specialist Psychiatric/Mental Health, Adult
DX: F31.30 Bipolar disorder, current episode depressed, mild or moderate severity, unspecified (principal); Z91.148 Patient's other noncompliance with medication regimen for other reason; E03.9 Hypothyroidism, unspecified; F14.10 Cocaine abuse, uncomplicated; J44.9 Chronic obstructive pulmonary disease, unspecified; F17.210 Nicotine dependence, cigarettes, uncomplicated; Z59.02 Unsheltered homelessness; Z71.6 Tobacco abuse counseling; Z79.890 Hormone replacement therapy; Z79.899 Other long term (current) drug therapy
CPT/HCPCS: 36415; 73502; 73552; 73590; 80053; 80061; 82607; 82746; 83036; 83735; 84439; 84443; 90715; 94640

== ENCOUNTER → 2023-06-02 22:49 | Outpatient (BNV) | payer OTHER, SELFPAY | PROVIDERS: Admitting Provider Psychiatry & Neurology Psychiatry; Visit Provider Clinical Nurse Specialist Psychiatric/Mental Health, Adult | DX: F31.30 Bipolar disorder, current episode depressed, mild or moderate severity, unspecified (principal); F14.10 Cocaine abuse, uncomplicated | CPT/HCPCS: 99231; 99232 ==

== ENCOUNTER → 2023-06-02 22:49 | Outpatient (BNV) | payer MEDICAID, SELFPAY | PROVIDERS: Admitting Provider Psychiatry & Neurology Psychiatry; Visit Provider Family Medicine | DX: Z02.2 Encounter for examination for admission to residential institution (principal) | CPT/HCPCS: 99429 ==

== ENCOUNTER 2023-08-14 11:33 | Outpatient (REF) | payer MEDICAID, SELFPAY ==
[2023-08-14 14:23] LABS: Cholesterol 129 mg/dL (<200); HDL Cholesterol 55 mg/dL (>40); LDL Cholesterol Calculated 61 mg/dL (<100); Triglycerides 68 mg/dL (<150)
[2023-08-14 14:44] LABS: TSH reflex Free T4 2.45 uIU/mL (0.32-4.0)
== END 2023-08-14 11:34 | disposition home or self-care (01) ==
LOC: HO.HHCL 11:33
PROVIDERS: Visit Provider Nurse Practitioner Primary Care
DX: E03.9 Hypothyroidism, unspecified (principal); E78.5 Hyperlipidemia, unspecified
CPT/HCPCS: 36415; 80061; 84443

== ENCOUNTER 2024-05-06 10:29 | Outpatient (AMB) | payer MEDICAID, SELFPAY ==
--- NOTE | 2024-05-06 07:49 | MHC.OFFVIS ---
Intake Visit Reasons: Current Smoker Allergies Penicillins [PENICILLINS] Allergy (Unknown, Verified 12/04/20 09:04) UNKNOWN tomato Adverse Reaction (Severe, Verified 06/03/23 03:09) Swelling Erythromycin Allergy (Unknown, Uncoded 12/04/20 09:04) Unknown HPI HPI Current Smoker: Details: Initial visit for this 59yo smoker with a 40PYH. Patient started smoking at age 12 for 47 years at 1ppd. Currently down to 1/4ppd. . Reports marijuana use once a week. Reports social second hand smoke exposure. Denies exposure to chemicals or substances like asbestos. . Denies known family history of lung cancer. Reports personal history of skin cancer - SCC. Denies chest CT in last year. . Denies recent travel outside the [place]. Denies recent respiratory illness or recent hospitalization for respiratory issues. Denies testing positive for COVID. Admits receiving COVID Vaccine. . Denies fever, chills, new/worsening cough, hemoptysis, hoarseness or dysphagia. Denies significant chest pain, significant dyspnea or unintentional weight loss. Patient Lung Cancer Screening Questionnaire reviewed with patient by provider. . Shared Decision Making Completed. Patient meets criteria. Discussed in detail with patient, the risk vs benefit of LDCT screening. Patient consents to proceed with scan. Discussed smoking cessation. [facility] Medical History (Updated 05/06/24 @ 10:48 by Vicki Castle PA-C) Bipolar disorder, now depressed History of substance abuse Fibromyalgia Multiple diaphyseal sclerosis Hypothyroidism COPD (chronic obstructive pulmonary disease) Nicotine dependence, cigarettes, uncomplicated Surgical History (Updated 05/06/24 @ 10:42 by Vicki Castle PA-C) History of umbilical hernia repair History of squamous cell carcinoma excision History of appendectomy Family History Father History of throat cancer Mother Alive and well Social History (Updated 05/06/24 @ 10:48 by Vicki Castle PA-C) Household Members: None Housing: Homeless Do you presently have visiting nurse or other home services: No Alcohol intake: never Patient Tobacco Use Status: Current everyday Tobacco user Tobacco use type: Cigarette Cigarettes Per Day: 4 Years Smoked: (onset 12yo, 1ppd x 47yrs, now 1/4ppd - 40PYH) e-Cigarette/Vaping Use: Never Used Second Hand Smoke Exposure: Yes Substance Use Type: Crack/Cocaine service: No Sexual orientation: Straight/Heterosexual Assessment & Plan Assessment & Plan (1) Nicotine dependence, cigarettes, uncomplicated: Comment: (current smoker - onset 12yo, 1ppd x 47yrs, now 1/4ppd - 40PYH) Code(s): F17.210 - Nicotine dependence, cigarettes, uncomplicated Category: Medical Plan: - SDM visit completed today in office. - Patient meets criteria for LDCT for lung cancer screening purposes and is asymptomatic. - Smoking cessation counseling offered. Patients can always call [phone]. - Will arrange for a LDCT scan of the chest for screening purposes at [facility]. - Risks, benefits, and alternatives were discussed in detail and the patient agrees to proceed. - Risks discussed include but are not limited to: radiation exposure, anxiety during testing and while awaiting results, false negatives, false positives and possibility of additional intervention such as further imaging or surgical procedures for benign disease. - Benefits are obviously detection of lung cancer at an early stage which can lead to improved outcomes. - Discussed the importance of screening program compliance with adherence to yearly LDCT scan as scheduled - or sooner interval scans for personalized screening regimen. - Discussed follow up plan. Our office will send a letter discussing results and if needed set up phone call and office visit based on CT findings. - Patient educated on results categorization and the management decisions for suspicious findings potentially found on the screening LDCT scan. Any patient with a Lung RADS score of 3 or 4 will be reviewed by a multidisciplinary team at [facility] to form a plan of action in regards to scan findings. - If further work up is warranted for a suspicious lung finding this will be followed by the Lung Cancer Screening program in conjunction with the Thoracic Surgery Department at [facility]. - A copy of the office note and LDCT will be sent to the patient's PCP - as well as documentation on any associated further plans of care. - Incidental findings on LDCT are the PCP's responsibility. These findings are indicated with an S finding on the LDCT Assessment. A note discussing the findings will be sent to the PCP who is then responsible for further management. - All questions answered.? Coding Level of Care Code Lung Cancer Screening G0296 Diagnoses Nicotine dependence, cigarettes, uncomplicated F17.210
== END 2024-05-06 11:07 | disposition home or self-care (01) ==
PROVIDERS: PCP Nurse Practitioner Primary Care; Visit Provider Physician Assistant Medical
DX: F17.210 Nicotine dependence, cigarettes, uncomplicated (principal)
CPT/HCPCS: G0296

== ENCOUNTER 2024-05-06 10:46 | Outpatient (REF) | payer MEDICAID, SELFPAY ==
--- NOTE | ~2024-05-06 | CT_ITS ---
EXAMINATION: CT CHEST LOW-DOSE SCREENING WITHOUT CONTRAST HISTORY: Asymptomatic patient meeting criteria for lung screening. Nicotine dependence, cigarettes, uncomplicated. PATIENT PACK-YEAR HISTORY: 42 Current Smoker: Yes If former smoker, years since quitting: N/A COMPARISON: None available. TECHNIQUE: Multidetector volumetric non-contrast CT imaging of the chest was obtained on a Siemens Somatom Definition scanner using low dose screening CT technique. Axial thin section 0.625 mm reformations in soft tissue and lung windows were obtained. Sagittal and coronal reformations were obtained. Axial MIP images were also created and reviewed. RECONSTRUCTED WIDTH: 1.25 mm x [address] examination was performed using dose optimization techniques as appropriate, variously including the following: *Automated exposure control *Adjustment of mA and/or kV according to patient size (this includes techniques or standardized protocols for targeted exams where dose is matched to indication/reason for exam; i.e. extremities or head) *Use of iterative reconstruction technique TOTAL EXAM DLP: 49 mGy-cm. CTDIvol: 147 mGy. FINDINGS: LUNGS: Lungs bilaterally symmetrically expanded there is moderate emphysema and mild bronchial thickening without bronchiectasis. 3 small pulmonary nodules are present including a 5 mm subpleural left upper lobe nodule (5:102), a 3 mm right upper lobe nodule (5:156), and a 4 mm right middle lobe nodule (5:218). No effusion or pneumothorax. Central airways patent. LYMPHATIC STRUCTURES: No mediastinal, hilar or axillary adenopathy or free fluid collection. THYROID GLAND: The right lobe of the thyroid is not seen or is small. The left lobe appears normal. CARDIOVASCULAR STRUCTURES: Aortic and heart size normal. No significant coronary artery calcifications. Tiny pericardial effusion. UPPER ABDOMEN: Included portions of the solid organs in the upper abdomen unremarkable on noncontrast imaging. OSSEOUS STRUCTURES: No suspicious focal findings. SPINAL COMPRESSION: Absent. CT/CT lung screening IMPRESSION: Moderate emphysema with 3 small pulmonary nodules. LUNG-RADS CATEGORY ASSESSMENT: 2: Benign INCIDENTAL FINDINGS (S CATEGORY): Finding: No incidental findings. Significance category: Normal or normal variant. RECOMMENDATION: Low dose lung CT. overall in 1 year. Visual estimate of coronary calcified plaque burden: None. However, this exam cannot replace a dedicated cardiac CT calcium score for accurate assessment. Electronically signed by: Curz Kennedy MD 06/18/2024 09:07 AM REILLY SALCEDO
== END 2024-05-06 10:47 | disposition home or self-care (01) ==
LOC: HO.CT 10:46
PROVIDERS: PCP Nurse Practitioner Primary Care; Visit Provider Nurse Practitioner Family
DX: Z12.2 Encounter for screening for malignant neoplasm of respiratory organs (principal); F17.210 Nicotine dependence, cigarettes, uncomplicated
CPT/HCPCS: 71271; G0296